=== PATIENT | male | born 1950 | race Caucasian/White ===

== ENCOUNTER 2017-07-19 20:32 | Inpatient (IN) | payer BC, MEDICARE ==
[2017-07-19] MEDS ORDERED: ASPIRIN 81 MG PO STA (21:03)
[2017-07-19] MEDS ORDERED: HEPARIN SODIUM,PORCINE 5,000 UNIT/ML 1 ML VIAL IV STA (21:06)
[2017-07-19 21:08] LABS: CH 31.1; CHCM 32.2; HCT 39.3 % (39.0-53.0); HDW 2.19; HGB 12.8 gm/dL (13.0-17.5); MCH 31.6 pg (25.0-35.0); MCHC 32.6 g/dL (31.0-37.0); MCV 97.1 fL (80.0-100.0); Mean Platelet Volume 7.1; RBC 4.04 m/uL (4.30-5.90); RDW 13.5 % (11.5-15.5)
[2017-07-19] MEDS ORDERED: NALOXONE 0.4 MG/ML 1 ML VIAL IV PRN (21:11)
--- NOTE | 2017-07-19 21:11 | ED ---
General Adult HPI - General Chief complaint: Chest Pain Stated complaint: Chest Pain Time Seen by Provider: 07/19/17 20:56 Source: patient, RN notes reviewed, old records reviewed Mode of arrival: wheelchair Limitations: no limitations - History of Present Illness Initial comments: 66 yo male with history of CAD, tobacco use, diabetes and cardiomyopathy presents with chief complaint of left arm and shoulder pain as well as some mild substernal chest pain. EKG is obtained and is showing ST segment elevation in the precordial leads. Patient denies nausea. Denies shortness of breath. States he had a heart catheterization approximately one week ago at [facility] in [facility]. He does admit to missing 1 dose of Plavix yesterday. He took his dose of medication today. Patient is also wearing a defibrillator, he does state he was told he had an EF of 25%. - Related Data Allergies Allergy/AdvReac Type Severity Reaction Status Date / Time Egg Derived Allergy Unknown Verified 07/19/17 20:51 Review of Systems ROS Statement: Those systems with pertinent positive or pertinent negative responses have been documented in the HPI. ROS Other: All systems not noted in ROS Statement are negative. Past Medical History Past Medical History: COPD, Diabetes Mellitus, Myocardial Infarction ([place]) History of Any Multi-Drug Resistant Organisms: None Reported Past Surgical History: Heart Catheterization With Stent Past Psychological History: No Psychological Hx Reported Smoking Status: Former smoker Past Alcohol Use History: None Reported Past Drug Use History: None Reported General Exam Limitations: no limitations General appearance: alert, in no apparent distress, other (Patient is comfortable, no diaphoresis) Head exam: Present: atraumatic, normocephalic Eye exam: Present: normal appearance, PERRL ENT exam: Present: normal exam Neck exam: Present: normal inspection. Absent: tenderness Respiratory exam: Present: normal lung sounds bilaterally. Absent: respiratory distress Cardiovascular Exam: Present: regular rate, normal rhythm GI/Abdominal exam: Present: soft. Absent: distended, tenderness Extremities exam: Present: normal inspection, normal capillary refill. Absent: pedal edema Neurological exam: Present: oriented X3 Psychiatric exam: Present: normal affect, normal mood Skin exam: Present: warm, dry. Absent: cyanosis, diaphoretic Course Vital Signs 07/19/17 07/19/17 07/19/17 20:47 20:55 21:00 Temperature 98 F Pulse Rate 146 H 76 80 Respiratory 16 18 18 Rate Blood Pressure 126/69 115/63 93/65 O2 Sat by Pulse 97 97 98 Oximetry 07/19/17 07/19/17 07/19/17 21:05 21:10 21:15 Temperature Pulse Rate 80 67 74 Respiratory 18 18 18 Rate Blood Pressure 107/63 101/58 94/71 O2 Sat by Pulse 98 99 98 Oximetry 07/19/17 07/19/17 21:20 21:25 Temperature Pulse Rate 74 78 Respiratory 18 18 Rate Blood Pressure 101/61 123/69 O2 Sat by Pulse 98 98 Oximetry EKG Findings - EKG Comments: EKG Findings:: EKG shows sinus rhythm with ST segment elevation in the precordial leads. No reciprocal change. Medical Decision Making - Medical Decision Making 60 sexual male with left arm pain and minimal chest pain. EKG does show STEMI. There is ST segment elevation in the precordium. No reciprocal changes noted. Patient is given aspirin and heparin. He was taken to the [facility] with [facility]. - Lab Data Result diagrams: 07/19/17 20:50 07/19/17 20:50 Lab Results 07/19/17 07/19/17 07/19/17 Range/Units 20:50 20:50 20:50 WBC 12.0 H (3.8-10.6) k/uL RBC 4.04 L (4.30-5.90) m/uL Hgb 12.8 L (13.0-17.5) gm/dL Hct 39.3 (39.0-53.0) % MCV 97.1 (80.0-100.0) fL MCH 31.6 (25.0-35.0) pg MCHC 32.6 (31.0-37.0) g/dL RDW 13.5 (11.5-15.5) % Plt Count 327 (150-450) k/uL PT (9.0-12.0) sec INR (<1.2) APTT (22.0-30.0) sec Sodium 136 L (137-145) mmol/L Potassium 4.1 (3.5-5.1) mmol/L Chloride 98 (98-107) mmol/L Carbon Dioxide 24 (22-30) mmol/L Anion Gap 14 mmol/L BUN 29 H (9-20) mg/dL Creatinine 1.87 H (0.66-1.25) mg/dL Est GFR (MDRD) Af Amer 44 (>60 ml/min/1.73 sqM) Est GFR (MDRD) Non-Af 36 (>60 ml/min/1.73 sqM) Glucose 98 (74-99) mg/dL Calcium 8.9 (8.4-10.2) mg/dL Total Bilirubin 0.6 (0.2-1.3) mg/dL AST 22 (17-59) U/L ALT 30 (21-72) U/L Alkaline Phosphatase 71 (38-126) U/L Troponin I 2.390 H* (0.000-0.034) ng/mL Total Protein 7.1 (6.3-8.2) g/dL Albumin 3.8 (3.5-5.0) g/dL 07/19/17 Range/Units 20:50 WBC (3.8-10.6) k/uL RBC (4.30-5.90) m/uL Hgb (13.0-17.5) gm/dL Hct (39.0-53.0) % MCV (80.0-100.0) fL MCH (25.0-35.0) pg MCHC (31.0-37.0) g/dL RDW (11.5-15.5) % Plt Count (150-450) k/uL PT 11.8 (9.0-12.0) sec INR 1.2 H (<1.2) APTT 24.0 (22.0-30.0) sec Sodium (137-145) mmol/L Potassium (3.5-5.1) mmol/L Chloride (98-107) mmol/L Carbon Dioxide (22-30) mmol/L Anion Gap mmol/L BUN (9-20) mg/dL Creatinine (0.66-1.25) mg/dL Est GFR (MDRD) Af Amer (>60 ml/min/1.73 sqM) Est GFR (MDRD) Non-Af (>60 ml/min/1.73 sqM) Glucose (74-99) mg/dL Calcium (8.4-10.2) mg/dL Total Bilirubin (0.2-1.3) mg/dL AST (17-59) U/L ALT (21-72) U/L Alkaline Phosphatase (38-126) U/L Troponin I (0.000-0.034) ng/mL Total Protein (6.3-8.2) g/dL Albumin (3.5-5.0) g/dL Critical Care Time Critical Care Time: Yes Total Critical Care Time: 35 Disposition Clinical Impression: ST elevation myocardial infarction (STEMI) Disposition: ADMITTED IP TO THIS [facility] Condition: Serious Referrals: Sammy Cardona MD [Primary Care Provider] - 1-2 days Decision to Admit Reason: Admit from EC Decision Date: 07/19/17 Decision Time: 21:30
[2017-07-19 21:16] LABS: INR 1.2 (<1.2); Prothrombin Time 11.8 sec (9.0-12.0)
[2017-07-19 21:19] LABS: Calcium 8.9 mg/dL (8.4-10.2); Potassium 4.1 mmol/L (3.5-5.1); Total Bilirubin 0.6 mg/dL (0.2-1.3); Total Protein 7.1 g/dL (6.3-8.2)
[2017-07-19] MEDS ORDERED: SODIUM CHLORIDE 0.9% 1,000 ML IV ONE (21:28)
[2017-07-19] MEDS ORDERED: LIDOCAINE 2% INJ 20 MG/ML (20 ML MDV) ONE (21:30)
[2017-07-19] MEDS ORDERED: VERAPAMIL 2.5 MG/ML 2 ML AMP ONE (21:31)
[2017-07-19] MEDS ORDERED: fentaNYL (PF) 50 MCG/ML 2 ML AMP ONE (21:39)
--- NOTE | 2017-07-19 21:43 | XR ---
EXAMINATION TYPE: XR chest 1V portable DATE OF EXAM: 07/19/2017 HISTORY: STEMI. REFERENCE: Previous study dated 01/19/2012. FINDINGS: The lungs are overinflated. The lungs are clear. The heart is not enlarged. IMPRESSION: COPD.
[2017-07-19] MEDS ORDERED: fentaNYL (PF) 50 MCG/ML 2 ML AMP IV ONE (21:44)
[2017-07-19] MEDS ORDERED: LIDOCAINE 2% INJ 20 MG/ML SQ ONE (21:45)
[2017-07-19] MEDS ORDERED: HEPARIN SODIUM 1,000 UN/ML (10ML VL) ONE (21:50)
[2017-07-19] MEDS ORDERED: HEPARIN SODIUM 1,000 UN/ML (10ML VL) IV ONE (21:51)
[2017-07-19] MEDS ORDERED: IOHEXOL 350 MG/ML 125ML BOTTLE INJ ONE (21:55)
[2017-07-19] MEDS ORDERED: RX INFO: IV CONTRAST WAS GIVEN 1 EACH MISC MISCELLANE PRN (22:10)
[2017-07-19] MEDS ORDERED: SODIUM CHLORIDE 0.9% 1,000 ML IV SCH (22:15)
--- NOTE | 2017-07-19 22:32 | CONS ---
CONSULTATION Mr. Good is a 66-year-old male with known history of coronary artery disease, history of peripheral vascular disease, chronic tobacco use, hyperlipidemia, who [place] episode of chest discomfort. Subsequently he was transferred from [place] to [facility]. He underwent coronary and angiography and stenting of his proximal LAD in a setting of an acute myocardial infarction. Apparently he had severe cardiomyopathy and a LifeVest was placed. He was discharged yesterday, and today he had some discomfort in the left arm as well as some discomfort in the neck with a vague feeling in the chest. He came into the emergency room. His EKG shows QS pattern in the anterior leads with persistent ST elevation. Unfortunately I do not have an old EKG for comparison. It is unclear if this is a new ST elevation or the persistent ST elevation from his event. The patient had some dyspnea while in the hospital but not on a regular basis. He is feeling better. He has no peripheral edema. No PND. No orthopnea. No syncope. He underwent stenting in the past by Dr. Norwood in what appears to be the LAD, although I do not have the report. He also underwent revascularization of his left lower extremity. His coronary risk factors are positive for history of smoking, which he stopped recently, history of hyperlipidemia, hypertension. He is nondiabetic. MEDICATIONS: His medications include: 1. Losartan. 2. Aspirin. 3. Plavix. 4. Cilostazol. 5. Lipitor. REVIEW OF SYSTEMS: RESPIRATORY SYSTEM: He has history of chronic obstructive lung disease, history of dyspnea on exertion. GI SYSTEM: No recent GI bleed. No peptic ulcer disease. SYSTEM: No dysuria, hematuria. NERVOUS SYSTEM: No stroke or seizure. PHYSICAL EXAMINATION: A 66-year-old male, alert, oriented, in no apparent distress. Blood pressure 120/70 with a heart rate in the 60s. HEAD: Normocephalic. EYES: Sclerae anicteric. NECK: Good carotid bruit. No bruit. No jugular venous distention. LUNGS: Clear to auscultation. HEART: Regular rate and rhythm. S1, S2. No S3, with systolic murmur at the base. No diastolic murmur or rub. ABDOMEN: Soft, nontender. Positive bowel sounds. No organomegaly. EXTREMITIES: No edema. Intact distal pulses. EKG: EKG reveals sinus mechanism, rate 68, with QS in V1 through V5 with ST-segment elevation from V2 through V5. IMPRESSION: 1. Abnormal EKG in a patient with recent anterior myocardial infarction. The ST elevation could be representing evidence of aneurysmal changes in the apex, although the possibility of stent occlusion cannot be excluded. At the time of my evaluation the patient is pain-free. 2. Ischemic cardiomyopathy, status post recent myocardial infarction. 3. History of peripheral vascular disease. 4. Hypertension. 5. Hyperlipidemia. 6. History of smoking. RECOMMENDATION: I recommend proceeding with coronary angiography to assess his status and guide his treatment. The rational behind the procedure as well as risks and complications were discussed with the patient, who is in full understanding and agreement. Thank you for this consult. Will follow with you. MMMARIBEL / IJN: [id number] /
--- NOTE | 2017-07-19 23:02 | CC ---
CARDIAC CATHETERIZATION REPORT ATTENDING: Dr. Cardona. Mr. Good is a 66-year-old male with known history of coronary artery disease, status post prior percutaneous revascularization of the circumflex and the LAD, who recently was admitted to [facility] in the setting of an acute myocardial infarction complicated by V. fib. arrest. He underwent cardiac catheterization and stenting of the proximal LAD. He had evidence of ischemic cardiomyopathy and had a LifeVest. He was discharged home yesterday and today has some discomfort in the left arm, neck and some vague discomfort in the chest, came into the emergency room and his EKG showed QS pattern in the anterior leads with persistent ST elevation. It was unclear if those are new changes or persistent ST elevation from his recent myocardial infarction. In view of his presentation, his history, recommendation made regarding cardiac catheterization. The procedures risks, benefits and complication were discussed with the patient, who is in full understanding and agreement. PROCEDURE: Patient was brought to clinical laboratory assistant in the semi sedated state after receiving fentanyl and Benadryl and achieving moderate conscious sedated state. Using Xylocaine anesthesia and Seldinger technique, a 6-Lithuanian sheath was introduced in the right radial artery. Selective right and left angiography were performed using 6-Lithuanian 3-1/2 bend FL guiding catheter and a 5-Lithuanian 3-1/2 bend right Abhijeet catheter. Images of the coronary artery, including evan-axial views, were obtained. Following that, a 5-Lithuanian tight pigtail catheter was introduced into the left ventricle and pressures were calculated. Following the, catheter and sheaths were removed. Hemostasis was obtained with deployment of a TR band. There was no immediate complication. Patient is returned to his room in stable condition. FINDINGS: 1. Left main: This is a large-sized vessel, bifurcating into left circumflex, left anterior descending artery. Left main coronary artery has 10% to 20% plaque. 2. Left anterior descending artery: This is a large-sized vessel reaching toward the apex, giving rise to a large diagonal branch in the mid segment. The proximal stented segment of the LAD is patent with no evidence of thrombus. The second stent in the mid area is patent as well. There was diffuse intimal disease. Slow flow in the distal LAD was noted. 3. Left circumflex: This is a nondominant vessel giving rise to a large obtuse marginal branch. The stented segment in the proximal obtuse marginal branch is patent with mild intimal disease in the left circumflex. 4. Right coronary artery: This is a large dominant vessel, bifurcating into PDA and posterior lateral segment and branches. The right coronary artery has mild intimal disease without any evidence of high-grade stenosis. 5. Left ventriculogram: Ventriculogram is not performed. 6. Hemodynamics: The left ventricular end-diastolic pressure was 8 mmHg. IMPRESSION: 1. Patent stent in the proximal left anterior descending. 2. Mild disease in the circumflex and the right coronary artery. RECOMMENDATION: Patient will be continued on maximal medical therapy. 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 The patient will continue present therapy. His renal function will be followed closely and depending on his progress, further recommendation will be made. Those findings and recommendations were discussed with the patient, who is in full understanding and agreement. DURATION OF THE PROCEDURE: 15 minutes. ANTONIO / KEREN: [id number] /
--- NOTE | 2017-07-19 23:05 | CC ---
CARDIAC CATHETERIZATION REPORT Dear Dr. Cardona: I had the pleasure to perform cardiac catheterization on Mr. Good at [facility] on July 19 and a full copy of the procedure note will be forwarded to you. In brief, he was found to have no evidence of thrombosis in the stent that was placed recently at [facility] in [place]. Based on those findings, I have recommended continuing the present medical therapy with close followup of his left ventricular systolic function and if there is no improvement, he will be a candidate to undergo an ICD implantation. I will keep you updated on his progress and thank you for for allowing me to participate in this pleasant patient's care. Please feel free to call for any questions. MMODL / IJN: [id number] /
[2017-07-20] MEDS: METOPROLOL TARTRATE 25 MG TAB PO SCH ×2 (00:50→08:57)
[2017-07-20 03:41] LABS: Calcium 8.5 mg/dL (8.4-10.2); Potassium 4.1 mmol/L (3.5-5.1)
[2017-07-20] MEDS ORDERED: ASPIRIN 81 MG PO SCH (09:00)
[2017-07-20] MEDS ORDERED: CLOPIDOGREL 75 MG TAB PO SCH (09:00)
[2017-07-20] MEDS ORDERED: LOSARTAN 25 MG TAB PO SCH (09:00)
[2017-07-20] MEDS ORDERED: SPIRONOLACTONE 25 MG TAB PO SCH (09:00)
[2017-07-20] MEDS ORDERED: ATORVASTATIN 40 MG TAB PO SCH (09:00)
[2017-07-20] MEDS ORDERED: METOPROLOL TARTRATE 12.5 MG TAB PO SCH (09:02)
--- NOTE | 2017-07-20 09:48 | PN ---
PROGRESS NOTE Mr. Good is a 66-year-old male who presented with symptoms of left arm discomfort. He was recently discharged from [facility] in [place] after an acute anterior myocardial infarction with severe ischemic cardiomyopathy. His EKG showed QS pattern in the anterior wall with a persistent ST elevation. Because of his symptoms and recent event, he underwent repeat cardiac catheterization that revealed patent stents. He is doing well this morning. His breathing has been stable. He denies dizziness, palpitation. He denies any nausea. He continued on aspirin once a day, Plavix 75 mg daily, losartan 25 mg daily, spironolactone 12.5 mg daily, and metoprolol tartrate 25 mg twice a day. PHYSICAL EXAMINATION: Blood pressure running in the 90s with the heart rate in the 60s. LUNGS: Clear. HEART: Regular rate and rhythm. S1, S2. No S3. No rub. ABDOMEN: Soft, nontender. EXTREMITIES: No edema. Right radial pulse is intact. LAB DATA: Lab data revealed BUN and creatinine of 28 and 1.6, improved compared with yesterday. Potassium 4.1, hemoglobin 12.8. His troponin 2.3 and 2.04. EKG revealed no changes. IMPRESSION: 1. History of coronary disease with recent anterior myocardial infarction with patent stent. 2. Severe ischemic cardiomyopathy. 3. History of chronic tobacco use. 4. Peripheral vascular disease. 5. Chronic kidney disease. RECOMMENDATION: From the cardiac standpoint, I will cut down the dose of the metoprolol tartrate 12.5 mg twice a day because of his blood pressure and heart rate. He will follow up on a regular basis with Dr. Norwood. He should be able to be discharged home today and continue on the Life Vest. MMODL / IJN: [id number] /
[2017-07-20 09:51] VITALS: RESP 18
[2017-07-20 10:26] VITALS: BMI 17.0
[2017-07-20] MEDS ORDERED: CARVEDILOL 3.125 MG TAB PO SCH (12:00)
[2017-07-20 12:15] VITALS: TEMP 97.5
[2017-07-20 12:47] VITALS: BP 97/58; PULSE 53
--- NOTE | 2017-07-20 15:00 | P.HPIM ---
History of Present Illness H&P Date: 07/20/17 Chief Complaint: Chest pain HISTORY AND PHYSICAL AND DISCHARGE SUMMARY: This is a 66-year-old male patient of Dr. Cardona with a past medical history of COPD, diabetes mellitus type 2, recent acute ST elevated myocardial infarction treated at [facility] and underwent stenting in the proximal LAD. He has a known ejection fraction of 25% and was discharged home on a LifeVest yesterday. Patient states that once he got home he was feeling paranoid and developed this pain in his left arm and chest had a little tightness. He came into the emergency center at [facility] and he states that once a LifeVest was taken off the pain went away. Patient was seen by cardiology as he had ST changes on his EKG. It was not clear if this was new or old ST elevation. Patient underwent heart catheterization that showed patent stent in the proximal LAD and mild disease in the circumflex and right coronary artery. Chest x-ray showed COPD. Patient was ordered to receive metipranolol but this was never given by the nurses due to hypotension and bradycardia. Patient states that when he was at [place], he was taken off of beta roz because his heart rate was too low. We will change the metoprolol to Coreg and patient will receive a dose before he leaves. Patient has been cleared by cardiology for discharge home today. Patient is to maintain LifeVest. Review of Systems All systems: negative Constitutional: Denies chills, Denies fever Eyes: denies blurred vision, denies pain Ears, nose, mouth and throat: Denies headache, Denies sore throat Cardiovascular: Reports chest pain, Denies shortness of breath Respiratory: Denies cough Gastrointestinal: Denies abdominal pain, Denies diarrhea, Denies nausea, Denies vomiting Musculoskeletal: Denies myalgias Integumentary: Denies pruritus, Denies rash Neurological: Denies numbness, Denies weakness Psychiatric: Denies anxiety, Denies depression Endocrine: Denies fatigue, Denies weight change Past Medical History Past Medical History: COPD, Diabetes Mellitus, Myocardial Infarction ([place]) Additional Past Medical History / Comment(s): pt stated EF of 25% new life vest. Last Myocardial Infarction Date:: 07/13/2017 History of Any Multi-Drug Resistant Organisms: None Reported Past Surgical History: Heart Catheterization With Stent Additional Past Surgical History / Comment(s): 1 stent placed approx [address] Norwood, 2 stents placed Jul 13 at [facility] ( D/C on 07-18) Past Anesthesia/Blood Transfusion Reactions: No Reported Reaction Date of Last Stent Placement:: 07-13-2017 Past Psychological History: No Psychological Hx Reported Smoking Status: Former smoker Past Alcohol Use History: None Reported Additional Past Alcohol Use History / Comment(s): Patient was a smoker one and a half packs per day but recently cut back and is still exposed to secondhand smoke. He denies any medical marijuana, marijuana, street drug or alcohol use. He lives at home with his . 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 He does not use any devices for ambulation. Past Drug Use History: None Reported - Past Family History Mother Family Medical History: No Reported History Additional Family Medical History / Comment(s): Mother is alive at age 92 with history of dementia. Father Family Medical History: CVA/TIA, Dementia, Diabetes Mellitus Additional Family Medical History / Comment(s): Father at age 93 from old age with history of TIAs and diabetes mellitus. Sister(s) Additional Family Medical History / Comment(s): Patient has 3 sisters and one has been diagnosed with breast cancer. Patient does not have any brothers. Patient does not have any children. Medications and Allergies Home Medications Medication Instructions Recorded Confirmed Type Aspirin [Adult Low Dose Aspirin EC] 81 mg PO DAILY 07/19/17 07/19/17 History Atorvastatin [Lipitor] 40 mg PO HS 07/19/17 07/19/17 History Cilostazol [Pletal] 50 mg PO BID 07/19/17 07/19/17 History Clopidogrel [Plavix] 75 mg PO DAILY 07/19/17 07/19/17 History Losartan Potassium [Cozaar] 25 mg PO DAILY 07/19/17 07/19/17 History Nitroglycerin Sl Tabs [Nitrostat] 0.4 mg SUBLINGUAL Q5M PRN 07/19/17 07/19/17 History Spironolactone [Aldactone] 25 mg PO DAILY 07/19/17 07/19/17 History Carvedilol [Coreg] 3.125 mg PO BID #60 tablet 07/20/17 Rx Allergies Allergy/AdvReac Type Severity Reaction Status Date / Time Egg Derived Allergy Unknown Verified 07/19/17 23:04 Poultry Allergy Unknown Verified 07/20/17 00:46 Physical Exam Vitals: Vital Signs Temp Pulse Pulse Pulse Resp BP BP 07/20/17 12:46 53 L 97/58 07/20/17 11:35 97.5 F L 57 L 18 94/54 07/20/17 07:50 97.1 F L 63 18 89/50 07/20/17 04:00 58 L 63 16 90/60 07/20/17 01:55 68 16 89/53 07/20/17 00:55 60 17 93/50 07/20/17 00:00 56 L 54 L 17 07/19/17 23:55 56 L 85/47 07/19/17 22:55 54 L 18 78/48 07/19/17 22:40 56 L 17 87/51 07/19/17 22:25 57 L 16 101/59 07/19/17 22:10 64 17 89/52 07/19/17 21:40 64 17 89/52 07/19/17 21:25 78 18 123/69 07/19/17 21:20 74 18 101/61 07/19/17 21:15 74 18 94/71 07/19/17 21:10 67 18 101/58 07/19/17 21:05 80 18 107/63 07/19/17 21:00 80 18 93/65 07/19/17 20:55 76 18 115/63 07/19/17 20:47 98 F 146 H 16 126/69 Pulse Ox 07/20/17 12:46 07/20/17 11:35 96 07/20/17 07:50 96 07/20/17 04:00 96 07/20/17 01:55 97 07/20/17 00:55 96 07/20/17 00:00 07/19/17 23:55 07/19/17 22:55 96 07/19/17 22:40 95 07/19/17 22:25 98 07/19/17 22:10 98 07/19/17 21:40 98 07/19/17 21:25 98 07/19/17 21:20 98 07/19/17 21:15 98 07/19/17 21:10 99 07/19/17 21:05 98 07/19/17 21:00 98 07/19/17 20:55 97 07/19/17 20:47 97 Intake and Output 07/19/17 07/20/17 07/20/17 22:59 06:59 14:59 Intake Total 150 100 180 Output Total 200 Balance 150 100 -20 Intake: IV 150 Intake, IV Titration 100 Amount Sodium Chloride 0.9% 1, 100 000 ml @ 75 mls/hr IV . [id number] [facility] Rx#:[id number] Oral 180 Output: Urine 200 Other: Voiding Method Toilet Weight 58.967 kg 57.1 kg 57.1 kg Patient Weight 07/21/17 06:59 Weight 57.1 kg Gen: This is a 66-year-old thin male. He is sitting up in bed and appears to be in no acute distress. Patient is very anxious to be discharged home. HEENT: Head is atraumatic, normocephalic. Pupils equal, round. Sclerae is anicteric. NECK: Supple. No JVD. No lymphadenopathy. No thyromegaly. LUNGS: Clear to auscultation. No wheezes or rhonchi. No intercostal retractions. HEART: Regular rate and rhythm. No murmur. ABDOMEN: Soft. Bowel sounds are present. No masses. No tenderness. EXTREMITIES: No pedal edema. No calf tenderness. NEUROLOGICAL: Patient is awake, alert and oriented x3. Cranial nerves 2 through 12 are grossly intact. Results CBC & Chem 7: 07/19/17 20:50 07/20/17 03:09 Labs: Abnormal Lab Results - Last 24 Hours (Table) 07/19/17 07/19/17 07/19/17 Range/Units 20:50 20:50 20:50 WBC 12.0 H (3.8-10.6) k/uL RBC 4.04 L (4.30-5.90) m/uL Hgb 12.8 L (13.0-17.5) gm/dL INR (<1.2) Sodium 136 L (137-145) mmol/L BUN 29 H (9-20) mg/dL Creatinine 1.87 H (0.66-1.25) mg/dL Troponin I 2.390 H* (0.000-0.034) ng/mL 10/02/2807/20/17 07/20/17 Range/Units 20:50 03:09 03:09 WBC (3.8-10.6) k/uL RBC (4.30-5.90) m/uL Hgb (13.0-17.5) gm/dL INR 1.2 H (<1.2) Sodium 133 L (137-145) mmol/L BUN 28 H (9-20) mg/dL Creatinine 1.60 H (0.66-1.25) mg/dL Troponin I 2.040 H* (0.000-0.034) ng/mL Thrombosis Risk Factor Assmnt - Choose All That Apply Any of the Below Risk Factors Present?: Yes Each Factor Represents 1 point: Abnormal pulmonary function (COPD) Other Risk Factors: Yes Each Risk Factor Represents 2 Points: Arthroscopic surgery Thrombosis Risk Factor Assessment Total Risk Factor Score: 3 Thrombosis Risk Factor Assessment Level: Moderate Risk Assessment and Plan Plan: 1. Recent anterior myocardial infarction status post stent placement, stable. 2. Chest pain possibly related to gastritis or from life vest. 3. Ischemic cardiomyopathy. Patient to continue LifeVest. 4. COPD, stable without exacerbation. 5. Diabetes mellitus type 2. Patient will be admitted to the hospital for a minimum of 2 night stay. Discharge plan: Return home Impression and plan of care have been directed as dictated by the signing physician. Michelle Adams nurse practitioner acting as scribe for signing physician.
== END 2017-07-20 13:29 | disposition home or self-care (01) | DRG 391 ==
LOC: EC 20:32 → 6ICU 21:11 → 6SEL 22:07
PROVIDERS: ADMIT Internal Medicine Geriatric Medicine; ATTEND Internal Medicine Geriatric Medicine
PROC: B2111ZZ Fluoroscopy of Multiple Coronary Arteries using Low Osmolar Contrast (ICD-10-PCS; 2017-07-19)
PROC: 4A023N7 Measurement of Cardiac Sampling and Pressure, Left Heart, Percutaneous Approach (ICD-10-PCS; principal; 2017-07-19 21:22)
DX: K29.70 Gastritis, unspecified, without bleeding (principal); I21.02 ST elevation (STEMI) myocardial infarction involving left anterior descending coronary artery; T82.847A Pain due to cardiac prosthetic devices, implants and grafts, initial encounter; E11.22 Type 2 diabetes mellitus with diabetic chronic kidney disease; E11.51 Type 2 diabetes mellitus with diabetic peripheral angiopathy without gangrene; J44.9 Chronic obstructive pulmonary disease, unspecified; R07.9 Chest pain, unspecified; E78.5 Hyperlipidemia, unspecified; I12.9 Hypertensive chronic kidney disease with stage 1 through stage 4 chronic kidney disease, or unspecified chronic kidney disease; I25.10 Atherosclerotic heart disease of native coronary artery without angina pectoris; I25.5 Ischemic cardiomyopathy; N18.9 Chronic kidney disease, unspecified; Z77.22 Contact with and (suspected) exposure to environmental tobacco smoke (acute) (chronic); Z79.02 Long term (current) use of antithrombotics/antiplatelets; Z79.82 Long term (current) use of aspirin; Z79.899 Other long term (current) drug therapy; Z87.891 Personal history of nicotine dependence; Z95.5 Presence of coronary angioplasty implant and graft; Y71.1 Therapeutic (nonsurgical) and rehabilitative cardiovascular devices associated with adverse incidents; Y92.9 Unspecified place or not applicable
CPT/HCPCS: 36415; 71010; 80048; 80053; 83735; 84484; 85027; 85610; 85730; 93005; 93458; 96374; 96375; 99291

== ENCOUNTER → 2017-12-03 | Outpatient (CLI) | payer BC ==
[2017-12-03 13:59] LABS: HGB 12.1 gm/dL (13.0-17.5); MCH 30.4 pg (25.0-35.0); MCHC 32.7 g/dL (31.0-37.0); MCV 93.1 fL (80.0-100.0); Mean Platelet Volume 6.6; Platelet Count 273 k/uL (150-450); RBC 3.97 m/uL (4.30-5.90); RDW 13.4 % (11.5-15.5); WBC 8.7 k/uL (3.8-10.6)
[2017-12-03 14:13] LABS: Potassium 4.5 mmol/L (3.5-5.1)
== END | disposition home or self-care (01) ==
LOC: LABWHC1 13:12
PROVIDERS: ATTEND Internal Medicine Cardiovascular Disease
DX: Z01.812 Encounter for preprocedural laboratory examination (principal); I25.5 Ischemic cardiomyopathy
CPT/HCPCS: 36415; 80051; 82565; 84520; 85027

== ENCOUNTER 2017-12-13 06:15 | Day surgery (SDC) | payer BC, MEDICARE ==
[2017-12-11 15:55] VITALS: BMI 19.0
[~2017-12-13 06:15] MED LIST: ceFAZolin 1,000 MG in SODIUM CHLORIDE 0.9% IRRIGATIO 250 ML IRRIGATION ONE; ceFAZolin IN SWFI 2 GM/20 ML SYRINGE IVP ONE
[2017-12-13] MEDS ORDERED: fentaNYL (PF) 50 MCG/ML 2 ML AMP ONE (07:23)
[2017-12-13] MEDS ORDERED: diphenhydrAMINE 50 MG/ML 1 ML VIAL ONE (07:23)
[2017-12-13] MEDS ORDERED: PROPOFOL 10 MG/ML 20 ML VIAL IV ONE (07:23)
[2017-12-13] MEDS ORDERED: MIDAZOLAM 2 MG/2 ML VIAL ONE (07:23)
[2017-12-13] MEDS ORDERED: IOHEXOL 300 MG/ML 50 ML BOTTLE IV ONE (08:08)
[2017-12-13] MEDS ORDERED: LIDOCAINE 1% INJ 10MG/ML (20 ML MDV) SQ ONE (08:12)
[2017-12-13] MEDS ORDERED: ACETAMINOPHEN TAB 325 MG TAB PO PRN (08:53)
--- NOTE | 2017-12-13 09:05 | P.PCN ---
Date of Procedure: 12/13/17 Preoperative Diagnosis: Ischemic cardiomyopathy, CHF Postoperative Diagnosis: The same Procedure(s) Performed: Prophylactic AICD implantation for primary prevention Description of Procedure: HISTORY: This is a 67-year-old gentleman with history of anterior wall microinfarction, ischemic cardiomyopathy with ejection fraction of 30-30% and chronic CHF. Patient is advised to have AICD implantation for primary prevention. Patient was referred by Dr. Hugo CONSENT:I have discussed the risks, benefits and alternative therapies for the above-mentioned procedure and for both sedation/analgesia as well as necessary blood product administration, if indicated, as they pertain to this patient. The patient has indicated understanding and acceptance of the risks and procedures discussed. PROCEDURE: Patient was brought to the lab in a fasting state. Patient was prepped and draped in the usual fashion. Patient was given IV sedation by the department of anesthesia. The skin below the left clavicle was infiltrated with lidocaine. An incision was made parallel to deltopectoral groove was deepened until the pectoral fascia was exposed. A pocket was created by blunt dissection and cautery. Axillary venography was performed to delineate the course of the axillary vein. 1 venous stick were performed into extrathoracic portion of the axillary vein and a single sheath were advanced over the guidewires and left in subclavian vein. LEADS: VENTRICULAR: This is manufactured by [employer]. Model number is [id number] AND THE SERIAL NUMBER IS [id number]. The ventricular lead is maneuvered l with help of a straight and curved stylets into the left ventricle apical region. Satisfactory position was obtained and threshold measurements were made. And thresholds were obtained. THRESHOLDS: VENTRICLE: The minimal patient threshold is 0.8 at pulse width of 0.5. The impedance is 711 ohms . R-wave: 10.4 new The leads and pulse generator remained in the pocket after it was washed with antibiotics. Pocket was closed in the usual fashion. The fascia was closed with 2-0 Prolene ,the subcutaneous tissue was closed with 3-0 Prolene and the skin was closed with 4-0 Prolene. PROGRAMMING: Bradycardia programming: MODE: VVI RATE: 40 OUTPUT: Ventricle: 3.5 TACHYCARDIA PROGRAMMING: VF ZONE: PROGRAMMED TO A RATE OF 200. THE THERAPIES ARE PROGRAMMED TO 321 FOLLOWED BY 355. VT ZONE: PROGRAMMED TO A RATE OF ABOUT 167. THE THERAPIES ARE PROGRAMMED TO 20 J SHOCK FOLLOWED BY 353. FINAL IMPRESSION: . Successful implantation of prophylactic AICD. Axillary venography. DFT testing COMPLICATIONS: None. PLAN: Patient will be monitored on the telemetry unit. Prophylactic antibiotics will be continued. Chest x-ray in the morning. Possible discharge in am.
[2017-12-13] MEDS ORDERED: SODIUM CHLORIDE 0.9% 500 ML IV ONE (10:00)
[2017-12-13] MEDS ORDERED: NITROGLYCERIN SL TABS 0.4 MG TAB SUBLINGUAL PRN (14:18)
[2017-12-13] MEDS: LACTATED RINGERS 1,000 ML IV SCH (14:24)
[2017-12-13] MEDS: SODIUM CHLORIDE 0.9% 1,000 ML IV SCH ×2 (14:25)
[2017-12-13] MEDS: DICLOFENAC 0.1% OPHTH SOLN 2.5 ML BTL LEFT EYE SCH ×2 (15:57→20:00)
[2017-12-13] MEDS: LOSARTAN 25 MG TAB PO SCH (15:57)
[2017-12-13] MEDS: ceFAZolin IN SWFI 2 GM/20 ML SYRINGE IVP SCH ×2 (15:57→19:59)
[2017-12-13] MEDS: CARVEDILOL 3.125 MG TAB PO SCH (15:57)
[2017-12-13] MEDS: GABAPENTIN 100 MG CAP PO SCH ×2 (15:57→19:59)
[2017-12-13] MEDS: SPIRONOLACTONE 25 MG TAB PO SCH (15:57)
[2017-12-13] MEDS: HYDROcodone/APAP 5-325MG 1 EACH TAB PO PRN (19:59)
[2017-12-13] MEDS ORDERED: ATORVASTATIN 40 MG TAB PO SCH (21:00)
[2017-12-14] MEDS: ceFAZolin IN SWFI 2 GM/20 ML SYRINGE IVP SCH ×2 (02:00→07:57)
[2017-12-14] MEDS: SODIUM CHLORIDE 0.9% 1,000 ML IV SCH ×2 (02:01)
[2017-12-14] MEDS: LACTATED RINGERS 1,000 ML IV SCH (05:47)
[2017-12-14 07:48] VITALS: PULSE 55; RESP 18; TEMP 97.8
[2017-12-14] MEDS: GABAPENTIN 100 MG CAP PO SCH (07:56)
[2017-12-14] MEDS: LOSARTAN 25 MG TAB PO SCH (07:56)
[2017-12-14] MEDS: CARVEDILOL 3.125 MG TAB PO SCH (07:56)
[2017-12-14] MEDS: SPIRONOLACTONE 25 MG TAB PO SCH (07:57)
[2017-12-14 08:00] VITALS: BP 109/59
[2017-12-14] MEDS: HYDROcodone/APAP 5-325MG 1 EACH TAB PO PRN (08:08)
--- NOTE | 2017-12-14 08:41 | XR ---
EXAMINATION TYPE: XR chest 2V DATE OF EXAM: 12/14/2017 COMPARISON: 07/19/2017 TECHNIQUE: PA and lateral views submitted. HISTORY: Lead placement check FINDINGS: Left-sided single lead pacemaker seen with tip overlying the region of the right ventricle. No sizabl e pneumothorax. Linear subsegmental changes in the left upper lobe scar or atelectasis. No overt fail ure or pleural effusion. Underlying COPD suggested. Minimal blunting of both costophrenic angles may represent tiny effusions. IMPRESSION: 1. Cardiac lead overlies the region of the right ventricle with no sizable pneumothorax 2. Tiny bilateral pleural effusion or thickening with left upper lobe linear atelectasis or scar.
--- NOTE | 2017-12-14 08:57 | P.DS ---
Providers Date of admission: 12/13/2017 Expected date of discharge: 12/14/17 Attending physician: Quynh Grissom Primary care physician: Sammy Cardona - Discharge Diagnosis(es) (1) Ischemic cardiomyopathy Current Visit: Yes Status: Acute (2) Chronic CHF Current Visit: Yes Status: Acute (3) History of myocardial infarction Current Visit: Yes Status: Acute (4) S/P implantation of automatic cardioverter/defibrillator (AICD) Current Visit: Yes Status: Acute Hospital Course: This a 67-year-old gentleman suffered a large anterior wall myocardial infarction. Patient developed a severe cardiomyopathy with ejection fraction 30 -35% and has chronic CHF class 1-2. Patient was referred by Dr. Hugo for AICD implantation. Patient had single-chamber single coil AICD implantation yesterday. Patient tolerated the procedure well. Clinically stable since the procedure. Complaints of moderate amount of pain around the incision site. There is no hematoma. Mild ecchymosis noted. Chest x-ray shows proper lead position. No evident complications. Patient tolerated activity fairly well. Patient is waiting to complete his antibiotics and also waiting to be interrogated by [employer]. Once the evaluation by [employer] rep is done and if settings are stable, patient will be discharged home after completion of the antibiotics. Follow-up in the office in about one week time. Patient is advised to keep the area dry until seen in the office. Patient is given usual instructions. He is advised to not to raise the arm and both shoulder level and also not to lift, push or pull with the left arm. He will continue home medications including Plavix and aspirin. He is given a prescription prophylactic antibiotic and also pain medication. He is instructed to call us if he develops any fever, chills or significant swelling around the puncture site. Plan - Discharge Summary Discharge Rx Participant: No New Discharge Prescriptions: New HYDROcodone/APAP 5-325MG [[place] 5-325] 1 - 2 tab PO Q6HR PRN #10 tab PRN Reason: chest pain Cephalexin [Keflex] 500 mg PO Q8HR #10 cap No Action Nitroglycerin Sl Tabs [Nitrostat] 0.4 mg SUBLINGUAL Q5M PRN PRN Reason: Chest Pain Losartan Potassium [Cozaar] 25 mg PO DAILY Clopidogrel [Plavix] 75 mg PO DAILY Cilostazol [Pletal] 50 mg PO BID Atorvastatin [Lipitor] 40 mg PO HS Aspirin [Adult Low Dose Aspirin EC] 81 mg PO DAILY Spironolactone [Aldactone] 25 mg PO DAILY Carvedilol [Coreg] 3.125 mg PO BID #60 tablet Diclofenac 0.1% Ophth Soln [Voltaren 0.1% Ophth Soln] 1 drops LEFT EYE BID Gabapentin [Neurontin] 100 mg PO BID Discharge Medication List Aspirin [Adult Low Dose Aspirin EC] 81 mg PO DAILY 07/19/17 [History] Atorvastatin [Lipitor] 40 mg PO HS 07/19/17 [History] Cilostazol [Pletal] 50 mg PO BID 07/19/17 [History] Clopidogrel [Plavix] 75 mg PO DAILY 07/19/17 [History] Losartan Potassium [Cozaar] 25 mg PO DAILY 07/19/17 [History] Nitroglycerin Sl Tabs [Nitrostat] 0.4 mg SUBLINGUAL Q5M PRN 07/19/17 [History] Spironolactone [Aldactone] 25 mg PO DAILY 07/19/17 [History] Carvedilol [Coreg] 3.125 mg PO BID #60 tablet 07/20/17 [Rx] Diclofenac 0.1% Ophth Soln [Voltaren 0.1% Ophth Soln] 1 drops LEFT EYE BID 12/11 [History] Gabapentin [Neurontin] 100 mg PO BID 12/11/17 [History] Cephalexin [Keflex] 500 mg PO Q8HR #10 cap 12/14/17 [Rx] HYDROcodone/APAP 5-325MG [[place] 5-325] 1 - 2 tab PO Q6HR PRN #10 tab 12/14/17 [ Rx]
== END 2017-12-14 11:54 | disposition home or self-care (01) ==
LOC: CATHEP 06:15 → 3OBS 08:50 → CATHEP 12-14 11:54
PROVIDERS: ATTEND Internal Medicine Cardiovascular Disease
DX: I25.5 Ischemic cardiomyopathy (principal); Z00.6 Encounter for examination for normal comparison and control in clinical research program; I11.0 Hypertensive heart disease with heart failure; I50.9 Heart failure, unspecified; Z86.74 Personal history of sudden cardiac arrest; J90 Pleural effusion, not elsewhere classified; J98.11 Atelectasis; E78.5 Hyperlipidemia, unspecified; I25.10 Atherosclerotic heart disease of native coronary artery without angina pectoris; I25.2 Old myocardial infarction; I25.3 Aneurysm of heart; Z95.5 Presence of coronary angioplasty implant and graft; I73.9 Peripheral vascular disease, unspecified; Z88.6 Allergy status to analgesic agent; Z87.891 Personal history of nicotine dependence; Z79.01 Long term (current) use of anticoagulants; Z79.82 Long term (current) use of aspirin; Z79.899 Other long term (current) drug therapy
CPT/HCPCS: 93641; 33249; 71046; C1895; C1722; J2250; J1200; J2001; J3010; J2704; Q9967; J0690 ×2

== ENCOUNTER 2018-08-08 13:31 | Emergency (ER) | payer BC ==
--- NOTE | 2018-08-08 13:55 | ED ---
Chest Pain HPI - General Chief Complaint: Chest Pain Stated Complaint: chest pain Time Seen by Provider: 08/08/18 13:46 Source: patient, RN notes reviewed, old records reviewed Mode of arrival: wheelchair Limitations: no limitations - History of Present Illness Initial Comments: This is a 67-year-old male the ER for evaluation chest pain history of CAD he did take nitro with no help prior to arrival. Patient states upon arrival to ER complains of no chest pain shortness of breath no dizziness, no complaints. MD Complaint: chest pain -: days(s) (1.5) Onset: during rest, during exertion Pain Location: substernal, left chest Pain Radiation: none Severity: mild Severity scale (1-10): 3 Quality: tightness Improves With: nitroglycerin Worsens With: nothing Treatments Prior to Arrival: none - Related Data Home Medications Medication Instructions Recorded Confirmed Aspirin [Adult Low Dose Aspirin EC] 81 mg PO DAILY@1200 07/19/17 08/08/18 Atorvastatin [Lipitor] 40 mg PO HS@0000 07/19/17 08/08/18 Cilostazol [Pletal] 50 mg PO BID@0000,1200 07/19/17 08/08/18 Clopidogrel [Plavix] 75 mg PO DAILY@1200 07/19/17 08/08/18 Losartan Potassium [Cozaar] 25 mg PO DAILY@1200 07/19/17 08/08/18 Nitroglycerin Sl Tabs [Nitrostat] 0.4 mg SUBLINGUAL Q5M PRN 07/19/17 08/08/18 Spironolactone [Aldactone] 25 mg PO DAILY@1200 07/19/17 08/08/18 Carvedilol [Coreg] 3.125 mg PO BID@0000,1200 08/08/18 08/08/18 Allergies Allergy/AdvReac Type Severity Reaction Status Date / Time Egg Derived Allergy Abdominal Verified 08/08/18 14:17 Pain Poultry Allergy Abdominal Verified 08/08/18 14:17 Pain NSAIDS (Non-Steroidal AdvReac KIDNEY Verified 08/08/18 14:17 Anti-Inflamma ISSUES Review of Systems ROS Statement: Those systems with pertinent positive or pertinent negative responses have been documented in the HPI. ROS Other: All systems not noted in ROS Statement are negative. EKG Findings - EKG Comments: EKG Findings:: EKG shows sinus rhythm rate of 60, NC 170, QRS 96, QTc 436 Past Medical History Past Medical History: COPD, Diabetes Mellitus, Myocardial Infarction ([place]) Additional Past Medical History / Comment(s): pt stated EF of 25% new life vest. Last Myocardial Infarction Date:: 07/13/2017 History of Any Multi-Drug Resistant Organisms: None Reported Past Surgical History: Heart Catheterization With Stent Additional Past Surgical History / Comment(s): 1 stent placed approx [address] Norwood, 2 stents placed Jul 13 at [facility] ( D/C on 07-18) Past Anesthesia/Blood Transfusion Reactions: No Reported Reaction Date of Last Stent Placement:: 07-13-2017 Past Psychological History: No Psychological Hx Reported Smoking Status: Former smoker - Past Family History Mother Family Medical History: No Reported History Additional Family Medical History / Comment(s): Mother is alive at age 92 with history of dementia. Father Family Medical History: Cancer Additional Family Medical History / Comment(s): SKIN CANCER Sister(s) Family Medical History: Cancer Additional Family Medical History / Comment(s): BREAST CANCER General Exam Limitations: no limitations General appearance: alert, in no apparent distress Head exam: Present: atraumatic, normocephalic, normal inspection Eye exam: Present: normal appearance, PERRL, EOMI. Absent: scleral icterus, conjunctival injection, periorbital swelling ENT exam: Present: normal exam, mucous membranes moist Neck exam: Present: normal inspection. Absent: tenderness, meningismus, lymphadenopathy Respiratory exam: Present: normal lung sounds bilaterally. Absent: respiratory distress, wheezes, rales, rhonchi, stridor Cardiovascular Exam: Present: regular rate, normal rhythm, normal heart sounds. Absent: systolic murmur, diastolic murmur, rubs, gallop, clicks GI/Abdominal exam: Present: soft, normal bowel sounds. Absent: distended, tenderness, guarding, rebound, rigid Extremities exam: Present: normal inspection, full ROM, normal capillary refill. Absent: tenderness, pedal edema, joint swelling, calf tenderness Back exam: Present: normal inspection Neurological exam: Present: alert, oriented X3, CN II-XII intact Psychiatric exam: Present: normal affect, normal mood Skin exam: Present: warm, dry, intact, normal color. Absent: rash Course Vital Signs 08/08/18 08/08/18 08/08/18 13:35 14:00 15:00 Temperature 97.1 F L Pulse Rate 60 58 L 48 L Respiratory 18 14 13 Rate Blood Pressure 131/76 131/76 109/69 O2 Sat by Pulse 98 96 Oximetry 08/08/18 16:00 Temperature Pulse Rate 46 L Respiratory 12 Rate Blood Pressure 118/74 O2 Sat by Pulse 100 Oximetry - Reevaluation(s) Reevaluation #1: 08/08/18 16:29 Medical record is reviewed Reevaluation #2: 08/08/18 16:29 A she has elevated troponin stable mildly bumped, patient's prior troponin is 2.0, today he is undetectable, 0.017 Reevaluation #3: 08/08/18 16:30 Patient refusing to stay for admission, patient states he has no chest pain has not throughout stay and would like to be discharged home Reevaluation #4: 08/08/18 16:30 Studies Chest x-rays negative for acute disease Chest Pain MDM - MDM 67 male the ER for evaluation chest pain, history of chest pain history of chest pain causing angina taking nitro. Patient states he has no pain currently , and is now essay for further evaluation will be discharged home Disposition Clinical Impression: Chest pain Disposition: HOME SELF-CARE Condition: Good Instructions: Chest Pain (ED) Is patient prescribed a controlled substance at d/c from ED?: No Referrals: Sammy Cardona MD [Primary Care Provider] - 1-2 days
--- NOTE | 2018-08-08 15:06 | XR ---
EXAMINATION TYPE: XR chest 2V DATE OF EXAM: 08/08/2018 COMPARISON: Prior chest x-ray 12/14/2017 HISTORY: Chest pain TECHNIQUE: Frontal and lateral views of the chest are obtained. FINDINGS: Generator is present in the left pectoral region, intracardiac defibrillator lead in the ri ght ventricle. No evident pneumothorax or pleural effusion. The heart is small. Prominent lung volume s are consistent with COPD. Pulmonary vascularity and airam are not significantly changed. There is so me improvement in aeration in the left lower hemithorax. There are coronary artery calcifications and likely stents. Bones are stable. IMPRESSION: No acute cardiopulmonary process. There is improvement in aeration.
[2018-08-08 15:26] LABS: Basophils # (A) 0.1 k/uL (0-0.2); Basophils % (A) 1 %; Eosinophils # (A) 0.2 k/uL (0-0.7); Eosinophils % (A) 3 %; HGB 13.1 gm/dL (13.0-17.5); Lymphocytes # (A) 1.5 k/uL (1.0-4.8); Lymphocytes % (A) 18 %; MCH 30.4 pg (25.0-35.0); MCHC 32.8 g/dL (31.0-37.0); MCV 92.9 fL (80.0-100.0); Mean Platelet Volume 7.3; Monocytes # (A) 0.6 k/uL (0-1.0); Monocytes % (A) 7 %; Neutrophils # (A) 5.9 k/uL (1.3-7.7); Neutrophils % (A) 70 %; Platelet Count 179 k/uL (150-450); RBC 4.31 m/uL (4.30-5.90); RDW 13.3 % (11.5-15.5); WBC 8.5 k/uL (3.8-10.6)
[2018-08-08 15:38] LABS: INR 1.1 (<1.2); Partial Thromboplastin Time 25.1 sec (22.0-30.0); Prothrombin Time 10.9 sec (9.0-12.0)
[2018-08-08 15:47] LABS: Albumin 4.2 g/dL (3.5-5.0); Calcium 9.1 mg/dL (8.4-10.2); Magnesium 1.9 mg/dL (1.6-2.3); Potassium 4.6 mmol/L (3.5-5.1); Total Bilirubin 0.4 mg/dL (0.2-1.3); Total Protein 7.2 g/dL (6.3-8.2)
[2018-08-08 16:16] LABS: Creatine Kinase MB 2.9 ng/mL (0.0-2.4); Troponin I 0.016 ng/mL (0.000-0.034)
[2018-08-08 16:41] VITALS: BP 111/66; PULSE 49; RESP 18; TEMP 97.4
== END 2018-08-08 16:41 | disposition home or self-care (01) ==
LOC: EC 13:31
DX: R07.89 Other chest pain (principal); I25.10 Atherosclerotic heart disease of native coronary artery without angina pectoris; I25.2 Old myocardial infarction; Z87.891 Personal history of nicotine dependence; Z88.6 Allergy status to analgesic agent; Z91.012 Allergy to eggs; Z91.018 Allergy to other foods; Z79.02 Long term (current) use of antithrombotics/antiplatelets; Z79.82 Long term (current) use of aspirin; Z79.899 Other long term (current) drug therapy; Z95.9 Presence of cardiac and vascular implant and graft, unspecified
CPT/HCPCS: 36415; 71046; 80053; 82550; 82553; 83690; 83735; 83880; 84484; 85025; 85610; 85730; 99285

== ENCOUNTER → 2019-06-02 | Outpatient (CLI) | payer BC ==
--- NOTE | 2019-06-02 17:49 | US ---
EXAMINATION TYPE: US kidneys/renal and bladder DATE OF EXAM: 06/02/2019 COMPARISON: US 12/17/13 CLINICAL HISTORY: 68-year-old male N18.9 Chronic Kidney Disease. TECHNIQUE: Multiple sonographic images of the kidneys and bladder are obtained. FINDINGS: EXAM MEASUREMENTS: Right Kidney: 8.4 x 4.6 x 4.1 cm Left Kidney: 8.7 x 4.0 x 4.0 cm Post Void Residual Volume: 71.8 mL Right Kidney: No hydronephrosis. Small in size, 2 renal cysts: Upper pole = 1.9 x 1.7 x 1.6 cm Upper/mid pole = 0.9 x 0.9 x 0.8 cm Left Kidney: No hydronephrosis. Small in size Bladder: abnormal post void residual. Irregular contour and wall thickening suggests underlying trabe culations. Some prominence to the region of the prostate gland. Bilateral Jets seen: Yes Normal Post Void Residual: No Incidental finding of mid Abdominal Aortic Aneurysm = 4.9 x 4.6 x 4.4 cm with prominent mural based t hrombus/plaque. Luminal diameter = 1.9 x 1.7 cm . IMPRESSION: 1. No hydronephrosis. 2. Small kidneys suggesting underlying chronic medical renal disease. 3. Increased postvoid bladder volume (72 mL) in keeping with urinary retention. 3. Trabeculated appearance to the bladder with wall thickening and prominence to the prostate gland. Correlate for possible chronic bladder outlet obstruction.
== END | disposition home or self-care (01) ==
LOC: RADUSWWP 12:49
PROVIDERS: ATTEND Internal Medicine Geriatric Medicine
DX: N27.1 Small kidney, bilateral (principal); R33.9 Retention of urine, unspecified
CPT/HCPCS: 76770

== ENCOUNTER 2019-10-06 10:34 | Emergency (ER) | payer BC, MEDICARE ==
--- NOTE | 2019-10-06 11:42 | CT ---
EXAMINATION TYPE: CT brain ofelia elena DATE OF EXAM: 10/06/2019 COMPARISON: None HISTORY: Fall, syncope CT DLP: [address] of the brain was performed. The ventricles, basal cisterns and sulci overlying the cerebral convexities demonstrate mild enlargem ent. There is no evidence for intracranial hemorrhage or sulcal effacement. There is decreased attenuatio n about the periventricular white matter and deep white matter of both cerebral hemispheres, compatib le with chronic small vessel ischemia. No mass effects are seen. If symptoms persist consider MRI. Osseous calvarium is intact. Left parietal scalp hematoma. IMPRESSION: 1. Age related atrophic and chronic small vessel ischemic change without acute intracranial process seen at this time. CT Cervical Spine: Unenhanced CT of the cervical spine was performed with bone and soft tissue window settings submitted . Coronal and sagittal reconstruction is obtained. There is normal alignment and prevertebral soft tissues. No evidence for acute cervical fracture . Scattered degenerative disc disease and spondylosis. Biapical scarring. IMPRESSION: 1. No evidence for acute fracture or subluxation of the cervical spine.
--- NOTE | 2019-10-06 11:47 | ED ---
General Adult HPI - General Chief complaint: Syncope Stated complaint: Syncope Time Seen by Provider: 10/06/19 10:35 Source: patient, EMS Mode of arrival: EMS - History of Present Illness Initial comments: Dictation was produced using LoveThis dictation software. please excuse any grammatical, word or spelling errors. Chief Complaint: 68-year-old male presents after episode of syncope. History of Present Illness: 68-year-old male he has multiple comorbidities. Patient presents after episode of syncope today. Patient states that he was at [facility] office getting ultrasound of the abdomen. Patient has a history of abdominal aortic aneurysm. During that time patient had episode of syncope. Patient reports that he was feeling dizzy prior to the episode. Patient has history of heart failure and has had LifeVest in the past. Patient has a defibrillator in place. Patient reports that he was at the office when he started to feel dizzy. Patient spirits and episode of syncope. Didn't hit his head. Patient was transferred to the emergency department from clinic via EMS. Patient states he feels well at this time. Denies any abdominal symptoms. Chest pain or shortness of breath. Patient denies any dizziness at this time. Patient attributes his symptoms secondary to not eating breakfast in preparation for ultrasound studies today. The ROS documented in this emergency department record has been reviewed and confirmed by me. Those systems with pertinent positive or negative responses have been documented in the HPI. All other systems are other negative and/or noncontributory. PHYSICAL EXAM: General Impression: Alert and oriented x3, not in acute distress HEENT: Normocephalic atraumatic, extra-ocular movements intact, pupils equal and reactive to light bilaterally, mucous membranes moist. Cardiovascular: Heart regular rate and rhythm, S1&S2 audible, no murmurs, rubs or gallops Chest: Lungs clear to auscultation bilaterally, no rhonchi, no wheeze, no rales Abdomen: Bowel sounds present, pulsatile palpable abdominal mass Musculoskeletal: Pulses present and equal in all extremities, no peripheral edema Motor: no focal deficits noted Neurological: CN II-XII grossly intact, no focal motor or sensory deficits noted Skin: Intact with no visualized rashes Psych: Normal affect and mood ED course: 68-year-old male with multiple comorbidities presents with episode of syncope. Patient has a history of defibrillator, heart failure, dilated abdominal aortic aneurysm, COPD and diabetes. On arrival shows heart rate of 61, blood pressure of 100/62. Patient denies any abdominal symptoms whatsoever. Chart review shows that in May of this year he had an incidental finding of a 5 cm abdominal aortic aneurysm. Laboratory evaluation obtained showing normal CBC, normal coag panel. Metabolic panel shows cranial 2.05. Troponin is 0.02 tried to his baseline. Prematurity peptide 900. Chest x-ray is nonacute. Computed tomography scan of the head and C-spines shows no acute processes. AICD was interrogated showing no acute processes. Given patient's medical history I recommended to him that its best that he be admitted for inpatient syncope workup. Patient disagreed and wants to be discharged. Patient stands that he could have another episode of syncope and could suffer significant harm unknowingly. Patient states that this is happened before and this is from dehydration. Patient tolerated by mouth at bedside. Patient is willing to sign out AGAINST MEDICAL ADVICE.AMA macro Risks, Benefits, and Treatment alternatives were discussed in detail with the patient. The patient is alert and oriented X 3 and has the capacity to make an informed decision. The risks of increased morbidity including the possibly of were explained to and understood by the patient who is choosing to leave against medical advice. The patient is encouraged to return any time should they want further treatment and diagnostic investigation. Patient is notified of his results. Told to follow-up with cardiology and primary care physician. Patient understands that he should return to emergency Department with any hesitation especially if he experiences presyncope, syncope, chest pain or shortness of breath. EKG interpretation: Ventricular rate 22, sinus rhythm, MD interval 172, care is 86, QTC 446. No MD prolongation, no QTC prolongation, no ST or T-wave changes noted. EKG compared to 08/08/2018 showing no changes. Overall, this EKG is unremarkable - Related Data Home Medications Medication Instructions Recorded Confirmed Aspirin [Adult Low Dose Aspirin EC] 81 mg PO DAILY@1200 07/19/17 08/08/18 Atorvastatin [Lipitor] 40 mg PO HS@0000 07/19/17 08/08/18 Cilostazol [Pletal] 50 mg PO BID@0000,1200 07/19/17 08/08/18 Clopidogrel [Plavix] 75 mg PO DAILY@1200 07/19/17 08/08/18 Losartan Potassium [Cozaar] 25 mg PO DAILY@1200 07/19/17 08/08/18 Nitroglycerin Sl Tabs [Nitrostat] 0.4 mg SUBLINGUAL Q5M PRN 07/19/17 08/08/18 Spironolactone [Aldactone] 25 mg PO DAILY@1200 07/19/17 08/08/18 Carvedilol [Coreg] 3.125 mg PO BID@0000,1200 08/08/18 08/08/18 Previous Rx's Medication Instructions Recorded Nitroglycerin Sl Tabs [Nitrostat] 0.4 mg SUBLINGUAL Q5M PRN #100 tab 08/08/18 Allergies Allergy/AdvReac Type Severity Reaction Status Date / Time Egg Derived Allergy Abdominal Verified 08/08/18 14:17 Pain Poultry Allergy Abdominal Verified 08/08/18 14:17 Pain NSAIDS (Non-Steroidal AdvReac KIDNEY Verified 08/08/18 14:17 Anti-Inflamma ISSUES Review of Systems ROS Statement: Those systems with pertinent positive or pertinent negative responses have been documented in the HPI. ROS Other: All systems not noted in ROS Statement are negative. Past Medical History Past Medical History: COPD, Diabetes Mellitus, Myocardial Infarction ([place]) Additional Past Medical History / Comment(s): pt stated EF of 25% new life vest. Last Myocardial Infarction Date:: 07/13/2017 History of Any Multi-Drug Resistant Organisms: None Reported Past Surgical History: Heart Catheterization With Stent Additional Past Surgical History / Comment(s): 1 stent placed approx [address] Norwood, 2 stents placed Jul 13 at [facility] ( D/C on 07-18) Past Anesthesia/Blood Transfusion Reactions: No Reported Reaction Date of Last Stent Placement:: 07-13-2017 Past Psychological History: No Psychological Hx Reported Smoking Status: Former smoker - Past Family History Mother Family Medical History: No Reported History Additional Family Medical History / Comment(s): Mother is alive at age 92 with history of dementia. Father Family Medical History: Cancer Additional Family Medical History / Comment(s): SKIN CANCER Sister(s) Family Medical History: Cancer Additional Family Medical History / Comment(s): BREAST CANCER Course Vital Signs 10/06/19 10/06/19 10/06/19 10:39 12:00 12:10 Temperature 98.3 F 98.7 F Pulse Rate 61 59 L 60 Respiratory 16 18 16 Rate Blood Pressure 100/62 91/62 91/62 O2 Sat by Pulse 98 96 96 Oximetry 10/06/19 13:00 Temperature Pulse Rate 67 Respiratory 17 Rate Blood Pressure 91/62 O2 Sat by Pulse 95 Oximetry Medical Decision Making - Lab Data Result diagrams: 10/06/19 12:29 10/06/19 12:29 Lab Results 10/06/19 10/06/19 10/06/19 Range/Units 12:12 12: 12:29 WBC 8.4 (3.8-10.6) k/uL RBC 4.52 (4.30-5.90) m/uL Hgb 13.6 (13.0-17.5) gm/dL Hct 41.1 (39.0-53.0) % MCV 90.9 (80.0-100.0) fL MCH 30.0 (25.0-35.0) pg MCHC 33.0 (31.0-37.0) g/dL RDW 12.6 (11.5-15.5) % Plt Count 184 (150-450) k/uL Neutrophils % 78 % Lymphocytes % 8 % Monocytes % 9 % Eosinophils % 1 % Basophils % 0 % Neutrophils # 6.5 (1.3-7.7) k/uL Lymphocytes # 0.7 L (1.0-4.8) k/uL Monocytes # 0.8 (0-1.0) k/uL Eosinophils # 0.1 (0-0.7) k/uL Basophils # 0.0 (0-0.2) k/uL PT (9.0-12.0) sec INR (<1.2) APTT (22.0-30.0) sec Sodium 137 (137-145) mmol/L Potassium 4.6 (3.5-5.1) mmol/L Chloride 106 (98-107) mmol/L Carbon Dioxide 22 (22-30) mmol/L Anion Gap 9 mmol/L BUN 24 H (9-20) mg/dL Creatinine 2.05 H (0.66-1.25) mg/dL Est GFR (CKD-EPI)AfAm 38 (>60 ml/min/1.73 sqM) Est GFR (CKD-EPI)NonAf 32 (>60 ml/min/1.73 sqM) Glucose 98 (74-99) mg/dL POC Glucose (mg/dL) 86 (75-99) mg/dL POC Glu Instrument Technician Apprentice ID Vandana Espinoza Plasma Lactic Acid Raheel (0.7-2.0) mmol/L Calcium 8.4 (8.4-10.2) mg/dL Magnesium 1.9 (1.6-2.3) mg/dL Total Bilirubin 0.5 (0.2-1.3) mg/dL AST 26 (17-59) U/L ALT 19 (4-49) U/L Alkaline Phosphatase 91 (38-126) U/L Troponin I (0.000-0.034) ng/mL NT-Pro-B Natriuret Pep pg/mL Total Protein 6.8 (6.3-8.2) g/dL Albumin 3.7 (3.5-5.0) g/dL 10/06/19 10/06/19 10/06/19 Range/Units 12:29 12:29 12:29 WBC (3.8-10.6) k/uL RBC (4.30-5.90) m/uL Hgb (13.0-17.5) gm/dL Hct (39.0-53.0) % MCV (80.0-100.0) fL MCH (25.0-35.0) pg MCHC (31.0-37.0) g/dL RDW (11.5-15.5) % Plt Count (150-450) k/uL Neutrophils % % Lymphocytes % % Monocytes % % Eosinophils % % Basophils % % Neutrophils # (1.3-7.7) k/uL Lymphocytes # (1.0-4.8) k/uL Monocytes # (0-1.0) k/uL Eosinophils # (0-0.7) k/uL Basophils # (0-0.2) k/uL PT (9.0-12.0) sec INR (<1.2) APTT (22.0-30.0) sec Sodium (137-145) mmol/L Potassium (3.5-5.1) mmol/L Chloride (98-107) mmol/L Carbon Dioxide (22-30) mmol/L Anion Gap mmol/L BUN (9-20) mg/dL Creatinine (0.66-1.25) mg/dL Est GFR (CKD-EPI)AfAm (>60 ml/min/1.73 sqM) Est GFR (CKD-EPI)NonAf (>60 ml/min/1.73 sqM) Glucose (74-99) mg/dL POC Glucose (mg/dL) (75-99) mg/dL POC Glu Instrument Technician Apprentice ID Plasma Lactic Acid Raheel 1.2 (0.7-2.0) mmol/L Calcium (8.4-10.2) mg/dL Magnesium (1.6-2.3) mg/dL Total Bilirubin (0.2-1.3) mg/dL AST (17-59) U/L ALT (4-49) U/L Alkaline Phosphatase (38-126) U/L Troponin I 0.020 (0.000-0.034) ng/mL NT-Pro-B Natriuret Pep 938 pg/mL Total Protein (6.3-8.2) g/dL Albumin (3.5-5.0) g/dL 10/06/19 Range/Units 13:12 WBC (3.8-10.6) k/uL RBC (4.30-5.90) m/uL Hgb (13.0-17.5) gm/dL Hct (39.0-53.0) % MCV (80.0-100.0) fL MCH (25.0-35.0) pg MCHC (31.0-37.0) g/dL RDW (11.5-15.5) % Plt Count (150-450) k/uL Neutrophils % % Lymphocytes % % Monocytes % % Eosinophils % % Basophils % % Neutrophils # (1.3-7.7) k/uL Lymphocytes # (1.0-4.8) k/uL Monocytes # (0-1.0) k/uL Eosinophils # (0-0.7) k/uL Basophils # (0-0.2) k/uL PT 11.2 (9.0-12.0) sec INR 1.1 (<1.2) APTT 24.0 (22.0-30.0) sec Sodium (137-145) mmol/L Potassium (3.5-5.1) mmol/L Chloride (98-107) mmol/L Carbon Dioxide (22-30) mmol/L Anion Gap mmol/L BUN (9-20) mg/dL Creatinine (0.66-1.25) mg/dL Est GFR (CKD-EPI)AfAm (>60 ml/min/1.73 sqM) Est GFR (CKD-EPI)NonAf (>60 ml/min/1.73 sqM) Glucose (74-99) mg/dL POC Glucose (mg/dL) (75-99) mg/dL POC Glu Instrument Technician Apprentice ID Plasma Lactic Acid Raheel (0.7-2.0) mmol/L Calcium (8.4-10.2) mg/dL Magnesium (1.6-2.3) mg/dL Total Bilirubin (0.2-1.3) mg/dL AST (17-59) U/L ALT (4-49) U/L Alkaline Phosphatase (38-126) U/L Troponin I (0.000-0.034) ng/mL NT-Pro-B Natriuret Pep pg/mL Total Protein (6.3-8.2) g/dL Albumin (3.5-5.0) g/dL Disposition Clinical Impression: Syncope, Head contusion Disposition: Left Against Medical Advice Condition: Fair Instructions (If sedation given, give patient instructions): Syncope (ED) Referrals: Sammy Cardona MD [Primary Care Provider] - 1-2 days Time of Disposition: 13:47
--- NOTE | 2019-10-06 11:59 | XR ---
EXAMINATION TYPE: XR chest 2V DATE OF EXAM: 10/06/2019 COMPARISON: Prior chest 08/08/2018 HISTORY: Syncope, abnormal chest x-ray TECHNIQUE: Frontal and lateral views of the chest are obtained. FINDINGS: There is a generator in left pectoral region, lead within the right ventricle. There are ov erlying artifacts present. Increased lung volume may be due to underlying COPD. Aorta is dense. Ther e is no focal air space opacity, pleural effusion, or pneumothorax seen. The cardiac silhouette size is within normal limits. The osseous structures are intact. IMPRESSION: No acute cardiopulmonary process.
[2019-10-06 12:13] LABS: Glucose,Whole Blood 86 mg/dL (75-99)
[2019-10-06 12:41] LABS: Basophils % (A) 0 %; Eosinophils # (A) 0.1 k/uL (0-0.7); Eosinophils % (A) 1 %; HCT 41.1 % (39.0-53.0); HGB 13.6 gm/dL (13.0-17.5); Lymphocytes # (A) 0.7 k/uL (1.0-4.8); Lymphocytes % (A) 8 %; MCV 90.9 fL (80.0-100.0); Mean Platelet Volume 7.2; Monocytes # (A) 0.8 k/uL (0-1.0); Monocytes % (A) 9 %; Neutrophils # (A) 6.5 k/uL (1.3-7.7); Neutrophils % (A) 78 %; Platelet Count 184 k/uL (150-450); RBC 4.52 m/uL (4.30-5.90); RDW 12.6 % (11.5-15.5); WBC 8.4 k/uL (3.8-10.6)
[2019-10-06 12:52] LABS: Albumin 3.7 g/dL (3.5-5.0); Calcium 8.4 mg/dL (8.4-10.2); Magnesium 1.9 mg/dL (1.6-2.3); Potassium 4.6 mmol/L (3.5-5.1); Total Bilirubin 0.5 mg/dL (0.2-1.3); Total Protein 6.8 g/dL (6.3-8.2)
[2019-10-06 13:42] LABS: INR 1.1 (<1.2); Prothrombin Time 11.2 sec (9.0-12.0)
[2019-10-06 14:07] VITALS: BP 103/61; PULSE 66; RESP 18; TEMP 98.2
== END 2019-10-06 13:55 | disposition left against medical advice (07) ==
LOC: EC 10:34
DX: S00.03XA Contusion of scalp, initial encounter (principal); R55 Syncope and collapse; E11.9 Type 2 diabetes mellitus without complications; I50.9 Heart failure, unspecified; I25.2 Old myocardial infarction; I71.4 Abdominal aortic aneurysm, without rupture; Z79.02 Long term (current) use of antithrombotics/antiplatelets; Z79.82 Long term (current) use of aspirin; Z79.899 Other long term (current) drug therapy; Z88.6 Allergy status to analgesic agent; Z91.012 Allergy to eggs; Z91.018 Allergy to other foods; Z87.891 Personal history of nicotine dependence; Z95.5 Presence of coronary angioplasty implant and graft; Z95.810 Presence of automatic (implantable) cardiac defibrillator; X58.XXXA Exposure to other specified factors, initial encounter
CPT/HCPCS: 36415; 70450; 71046; 72125; 80053; 83605; 83735; 83880; 84484; 85025; 85610; 85730; 93005; 99285

== ENCOUNTER → 2020-03-23 | Outpatient (CLI) | payer BC ==
--- NOTE | 2020-03-23 08:37 | CT ---
EXAMINATION TYPE: CT abdomen pelvis wo con DATE OF EXAM: 03/23/2020 COMPARISON: Ultrasound 06/02/2019 HISTORY: AAA CT DLP: 377 mGycm Automated exposure control for dose reduction was used. TECHNIQUE: Helical acquisition of images was performed from the lung bases through the pelvis. FINDINGS: LUNG BASES: No significant abnormality is appreciated. Heart size is prominent there is a cardiac zoe d. LIVER/GB: There is a 6 mm hypodensity within the left lobe of the liver too small to characterize but statistically most likely related to a cyst. PANCREAS: Pancreatic calcifications noted. Assessment for mass limited by noncontrast technique. SPLEEN: No significant abnormality is seen. ADRENALS: No significant abnormality is seen. KIDNEYS: Simple appearing right renal cyst noted.. ADENOPATHY: None visualized. OSSEOUS STRUCTURES: Hypertrophic and degenerative change of the spine. BOWEL: No significant abnormality is seen. OTHER: There is a large aneurysm of the aorta. Measures approximately 5.3 cm in greatest AP dimension . There is intimal displacement anteriorly. Maximal transverse dimension is 4.8 cm. Originates approx imately 3 cm below renal artery. There is extension into the iliac arteries on the right measuring a maximal diameter of 3.5 cm compatible with aneurysmal dilation. Extensive atherosclerotic plaque note d. Linear hyperdensity along the anterior maxillary margin of the aneurysm sac could represent displa ranjeet intima. Intracranial hemorrhage not excluded. This appears increased in size from the ultrasound of 06/02/2019 where it measured 4.9 cm in maximal dimension. Case discussed with referring physician. The left common iliac artery appears to be of normal caliber with diffuse severe atherosclerotic dise ase. Localized occlusion of the left common iliac artery not excluded. IMPRESSION: 1. Large infrarenal abdominal aortic aneurysm measuring 5.3 x 4.8 cm with extension into the right il iac artery. Maximal dimension of the right iliac artery measures aneurysmal at 3.5 cm. Aneurysm origi nates approximately 3 cm below the renal artery. Hyperdensity along the anterior margin of the aneury sm sac could represent area of mural thrombus, dissection or possibly intramural hemorrhage. Case dis cussed with referring clinician. 2. Correlate for chronic pancreatitis.
== END | disposition home or self-care (01) ==
LOC: RADCTMAIN 07:48
PROVIDERS: ATTEND Internal Medicine Interventional Cardiology
DX: I71.4 Abdominal aortic aneurysm, without rupture (principal)
CPT/HCPCS: 74176

== ENCOUNTER → 2021-07-01 | Outpatient (CLI) | payer BC ==
--- NOTE | 2021-07-04 09:25 | CT ---
EXAMINATION TYPE: CT abdomen pelvis wo con DATE OF EXAM: 07/01/2021 COMPARISON: 03/23/2020 HISTORY: 70-year-old male I71.4, Abdominal aortic aneurysm w/o rupture. CT DLP: 537 mGycm. Automated exposure control for dose reduction was used. TECHNIQUE: Contiguous axial scanning of the abdomen and pelvis without IV contrast. Coronal and sagit lisstete reconstructions performed. FINDINGS: Right ventricular ICD lead. Heart normal size. Some strandy atelectasis posterior right base. Stable subcentimeter hypodensity in segment IVb left liver lobe too small for accurate CT characteriz ation, likely cysts. Otherwise, noncontrast appearance of the liver, gallbladder, adrenal glands, and spleen show no gross abnormal value. Stable calcifications posterior pancreatic head region. Pancreas otherwise shows no gross abnormal jb dy. A couple right upper pole renal cyst measuring 2.5 and 1.4 cm, unchanged. A thinly peripherally calcified exophytic lesion from the medial upper pole left kidney measures 2.1 cm, unchanged, likely mildly complex cyst and likely benign. No dilated small bowel, free fluid, or free air. Some prominent fluid filled small bowel loops lower abdomen and pelvis likely transient. No mesenteric or retroperitoneal lymphadenopathy. Mild to moderate scattered stool and sigmoid diverticulosis. No pericolic inflammatory change. Bladder urine distended. Prostate gland enlargement 4.9 cm wide. No abnormal fluid collection the pel vis or pelvic lymphadenopathy. Lower descending thoracic aorta mildly aneurysmal at 3.0 cm, unchanged. Upper abdominal aorta mildly aneurysmal at 3.0 cm, unchanged. Fusiform infrarenal AAA measuring up to 5.8 cm x 5.5 cm versus 5.5 x 5.2 cm, previously. Peripheral m ural based thrombus and calcification is redemonstrated. Distal abdominal aorta also aneurysmal measuring up to 3.3 cm versus 3.1 cm, previously. Proximal right common iliac artery aneurysmal at 2.0 cm, unchanged. Distal right common iliac artery markedly aneurysmal at 3.9 cm versus 3.8 cm, previously. Bones: Facet arthropathy lower lumbar spine. IMPRESSION: 1. Fusiform infrarenal AAA minimally larger at 5.8 x 5.5 cm (versus 5.5 x 5.2 cm, previously). 2. Aneurysm proximal right common iliac artery at 2.0 cm is unchanged. More marked aneurysm distal r ight common iliac artery at 3.9 cm versus 3.8 cm, previously.
== END | disposition home or self-care (01) ==
LOC: RADCTMAIN 17:08
PROVIDERS: ATTEND Internal Medicine Interventional Cardiology
DX: I72.3 Aneurysm of iliac artery (principal); I71.4 Abdominal aortic aneurysm, without rupture
CPT/HCPCS: 74176

== ENCOUNTER → 2023-11-23 | Outpatient (CLI) | payer MEDICARE ==
[2023-11-23 12:35] LABS: African American GFR (CKD) 73 (>60 ml/min/1.73 sqM); Blood Urea Nitrogen 20 mg/dL (9-20); Non-African American GFR(CKD) 63 (>60 ml/min/1.73 sqM)
--- NOTE | 2023-11-23 15:03 | CT ---
EXAMINATION TYPE: CT angio abdomen pelvis CT DLP: 485 mGycm, Automated exposure control for dose reduction was used. DATE OF EXAM: 11/23/2023 1:35 PM COMPARISON: 07/01/2021 CLINICAL INDICATION:Male, 72 years old with history of I71.43 INFRARENAL ABDOMINAL AORTIC ANEURYSM, W ITHO; PHH, Infrarenal abdominal aortic aneurysm w/out rupture TECHNIQUE: Multiple thin slice sub-millimeter images were obtained after administration of contrast. 3-D reconstructed images and maximum intensity projection images were obtained. CT angio abdomen pel vis CT Contrast: Contrast used:80 mL of Isovue 370 with IV Contrast, Oral contrast used: without Oral Contrast None FINDINGS: CTA Abdomen and pelvis: Infrarenal abdominal aortic aneurysm measuring up to 65 x 62 mm with mural th rombus. Previously this measured up to 58 x 55 5 mm. The remainder of the aorta demonstrates scattere d atherosclerotic plaque and calcifications. The visualized descending thoracic aorta is within emmett l limits. The celiac axis, the superior mesenteric artery and bilateral renal arteries are patent. Th e infundibulum of the r and superior mesenteric artery is dilated up to 14 mm. Is right common iliac artery aneurysm extends dilated up to 47 mm with mural thrombus present. Previo usly this measured up to 39 mm. The left common iliac artery appears occluded. Extending from its troy gin through the external iliac artery with reconstitution at the common femoral artery. LOWER CHEST: No evidence of focal consolidation, pneumothorax or pleural effusion. LIVER: Unremarkable GALLBLADDER AND BILE DUCTS: Unremarkable. PANCREAS: Unremarkable. SPLEEN: Unremarkable. ADRENAL GLANDS: Unremarkable. KIDNEYS AND URETERS: No evidence of hydronephrosis or renal calculus. The ureters are unremarkable. B ilateral renal cysts. PELVIS BLADDER: Unremarkable REPRODUCTIVE: Unremarkable. ABDOMEN & PELVIS STOMACH AND BOWEL: No evidence of bowel obstruction. Scattered colonic diverticula. PERITONEUM: No evidence of pneumoperitoneum or free fluid. MUSCULOSKELETAL: Mild disc degeneration changes are present throughout the thoracolumbar spine. LYMPH NODES: No gross evidence for lymphadenopathy. SOFT TISSUE/ABDOMINAL WALL: Unremarkable IMPRESSION: Vascular surgery consultation is recommended if not reperformed. 1. 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 2. Infrarenal abdominal aortic aneurysm measuring up to 65 mm with mural thrombus. 3. 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 4. Dilated infundibulum of the superior mesenteric artery. 5. Severe atherosclerosis of the arterial vasculature.
== END | disposition home or self-care (01) ==
LOC: RADCTMAIN 11:43
PROVIDERS: ATTEND Internal Medicine Geriatric Medicine
DX: I71.43 Infrarenal abdominal aortic aneurysm, without rupture (principal); I74.5 Embolism and thrombosis of iliac artery; I72.3 Aneurysm of iliac artery; I70.8 Atherosclerosis of other arteries; I72.8 Aneurysm of other specified arteries; I21.9 Acute myocardial infarction, unspecified
CPT/HCPCS: 82565; 84520; 36415; 74174; Q9967

== ENCOUNTER → 2024-02-18 | Outpatient (CLI) | payer MEDICARE ==
[2024-02-18 13:23] LABS: African American GFR (CKD) 50 (>60 ml/min/1.73 sqM); Blood Urea Nitrogen 23 mg/dL (9-20); Non-African American GFR(CKD) 43 (>60 ml/min/1.73 sqM)
--- NOTE | 2024-02-19 11:43 | CT ---
EXAMINATION TYPE: CT angio abd aorta w/Runoff CT DLP: 1334.1 mGycm, Automated exposure control for dose reduction was used. DATE OF EXAM: 02/18/2024 2:33 PM COMPARISON: . . CLINICAL INDICATION:Male, 73 years old with history of I71.4 AAA; PHH, AAA TECHNIQUE: Multiple thin slice sub-millimeter images were obtained after administration of contrast. 3-D reconstructed images and maximum intensity projection images were obtained. CT angio abd aorta w /Runoff CT Contrast: Contrast used: 89 mL of Isovue 370 with IV Contrast, Oral contrast used: None FINDINGS: CTA Abdomen and pelvis: The abdominal aorta aneurysm has been treated with metallic mesh stent graft. Simple cysts are seen in the right kidney which require no follow-up. Atherosclerotic plaquing is identified within the abdominal aorta. The origins of the superior mesenteric artery, renal arteries , inferior mesenteric artery, and celiac axis are patent. Aneurysm in the right common iliac artery had been treated with metallic mesh stent graft. The left common iliac artery is normal caliber and m orphology but contains a moderately high calcific plaque burden. CTA Lower extremities: Right: The common femoral and superficial femoral arteries are patent. The popliteal artery is patent . Anterior and posterior tibial arteries as well as the peroneal artery are patent. Anterior and post erior tibial arteries cross the ankle. Left: The common femoral and superficial femoral arteries are patent. The popliteal artery is patent. There is only two-vessel runoff in the proximal two thirds of the left leg. There is a three-vess el runoff in the right calf. Anterior and posterior tibial arteries cross the ankle. LOWER CHEST: No evidence of focal consolidation, pneumothorax or pleural effusion. LIVER: Unremarkable GALLBLADDER AND BILE DUCTS: Unremarkable. PANCREAS: Unremarkable. SPLEEN: Unremarkable. ADRENAL GLANDS: Unremarkable. KIDNEYS AND URETERS: No evidence of hydronephrosis or renal calculus. The ureters are unremarkable. PELVIS BLADDER: Unremarkable REPRODUCTIVE: Unremarkable. ABDOMEN & PELVIS STOMACH AND BOWEL: Stomach and duodenum are otherwise unremarkable No evidence of bowel obstruction. PERITONEUM: No evidence of pneumoperitoneum or free fluid. VASCULATURE: No evidence of aortic aneurysm. MUSCULOSKELETAL: No acute osseous abnormalities LYMPH NODES: No gross evidence for lymphadenopathy. SOFT TISSUE/ABDOMINAL WALL: Unremarkable IMPRESSION 1. 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 Atherosclerotic disease involving abdominal aorta and lower extremity vasculature. 3. At least two vessels are seen crossing the right ankle joint. Vessels in the lower third of the left calf and ankle are not opacified either due to occlusion or timing issues of the contrast bolus
== END | disposition home or self-care (01) ==
LOC: RADCTMAIN 12:06
PROVIDERS: ATTEND Surgery
DX: I72.3 Aneurysm of iliac artery (principal); I70.0 Atherosclerosis of aorta; I71.40 Abdominal aortic aneurysm, without rupture, unspecified
CPT/HCPCS: 82565; 84520; 75635; 36415; Q9967

== ENCOUNTER 2025-02-18 05:17 | Observation (INO) | payer MEDICARE ==
[2025-02-18 05:21] VITALS: TEMP 97.8
--- NOTE | 2025-02-18 05:26 | ED ---
Chest Pain HPI - General Chief Complaint: Chest Pain Stated Complaint: Chest Pain Time Seen by Provider: 02/18/25 05:25 Source: patient, RN notes reviewed, old records reviewed Mode of arrival: ambulatory Limitations: no limitations - History of Present Illness Initial Comments: This is a 74-year-old male to the ER for evaluation today. Patient presents today for evaluation regards to chest pain history of prior [place] multiple stents coming with chest pain that woke him up from sleep tonight. Patient took nitro and on arrival to the ER chest pain is resolved. No shortness of breath no other complaints been feeling well lately MD Complaint: chest pain -: hour(s) Onset: during rest, awoke with symptoms Pain Location: left chest Pain Radiation: none Severity: moderate Severity scale (1-10): 5 Quality: tightness, heaviness Consistency: constant, now resolved (With nitro) Improves With: nitroglycerin Worsens With: nothing Anginal Symptoms: sense of impending doom Other Symptoms: palpitations Treatments Prior to Arrival: none - Related Data Home Medications Medication Instructions Recorded Confirmed Aspirin [Adult Low Dose Aspirin EC] 81 mg PO DAILY 07/19/17 02/18/25 Spironolactone [Aldactone] 25 mg PO DAILY 07/19/17 02/18/25 carvediloL [Coreg] 3.125 mg PO BID 08/08/18 02/18/25 Amoxic-Pot Clav 875-125Mg 1 tab PO BID 02/18/25 02/18/25 [Augmentin 875-125] Atorvastatin [Lipitor] 40 mg PO HS 02/18/25 02/18/25 Bumetanide [BUMEX] 0.5 mg PO MOWEFR 02/18/25 02/18/25 Chlorhexidine Gluconate [Peridex] 30 ml PO TID 02/18/25 02/18/25 HYDROcodone/APAP 10-325MG [[place] 1 tab PO Q8H PRN 02/18/25 02/18/25 10-325] Ibuprofen [Motrin] 800 mg PO Q8H PRN 02/18/25 02/18/25 Sacubitril/Valsartan [Entresto 49 1 tab PO BID 02/18/25 02/18/25 mg-51 mg Tablet] allopurinoL [Zyloprim] 100 mg PO DAILY 02/18/25 02/18/25 Previous Rx's Medication Instructions Recorded Nitroglycerin Sl Tabs [Nitrostat] 0.4 mg SUBLINGUAL Q5M PRN #100 tab 08/08/18 Allergies Allergy/AdvReac Type Severity Reaction Status Date / Time Egg Derived Allergy Abdominal Verified 02/18/25 10:44 Pain Poultry Allergy Abdominal Verified 02/18/25 10:44 Pain NSAIDS (Non-Steroidal AdvReac KIDNEY Verified 02/18/25 10:44 Anti-Inflamma ISSUES Review of Systems ROS Statement: Those systems with pertinent positive or pertinent negative responses have been documented in the HPI. ROS Other: All systems not noted in ROS Statement are negative. EKG Findings - EKG Comments: EKG Findings:: EKG sinus bradycardia 53 MN 166 QRS 102 QTc 411 - EKG Results: EKG: interpreted by ADRIAN Past Medical History Past Medical History: COPD, Diabetes Mellitus, Myocardial Infarction ([place]) Additional Past Medical History / Comment(s): pt stated EF of 25% new life vest. AORTIC ANEUYRSYM. Last Myocardial Infarction Date:: 07/13/2017 History of Any Multi-Drug Resistant Organisms: None Reported Past Surgical History: Heart Catheterization With Stent Additional Past Surgical History / Comment(s): 1 stent placed approx [address] Norwood, 2 stents placed Jul 13 at [facility] ( D/C on 07-18) Past Anesthesia/Blood Transfusion Reactions: No Reported Reaction Date of Last Stent Placement:: 07-13-2017 Past Psychological History: No Psychological Hx Reported Smoking Status: Never smoker Past Alcohol Use History: None Reported Past Drug Use History: None Reported - Past Family History Father Family Medical History: Cancer Additional Family Medical History / Comment(s): SKIN CANCER Sister(s) Family Medical History: Cancer Additional Family Medical History / Comment(s): BREAST CANCER General Exam Limitations: no limitations General appearance: alert, in no apparent distress Head exam: Present: atraumatic, normocephalic, normal inspection Eye exam: Present: normal appearance, PERRL, EOMI. Absent: scleral icterus, conjunctival injection, periorbital swelling ENT exam: Present: normal exam, mucous membranes moist Neck exam: Present: normal inspection. Absent: tenderness, meningismus, lymphadenopathy Respiratory exam: Present: normal lung sounds bilaterally. Absent: respiratory distress, wheezes, rales, rhonchi, stridor Cardiovascular Exam: Present: regular rate, normal rhythm, normal heart sounds. Absent: systolic murmur, diastolic murmur, rubs, gallop, clicks GI/Abdominal exam: Present: soft, normal bowel sounds. Absent: distended, tenderness, guarding, rebound, rigid Extremities exam: Present: normal inspection, full ROM, normal capillary refill. Absent: tenderness, pedal edema, joint swelling, calf tenderness Back exam: Present: normal inspection Neurological exam: Present: alert, oriented X3, CN II-XII intact Psychiatric exam: Present: normal affect, normal mood Skin exam: Present: warm, dry, intact, normal color. Absent: rash Course Vital Signs 02/18/25 02/18/25 02/18/25 05:18 05:45 07:47 Temperature 97.8 F Pulse Rate 59 L 55 L 54 L Respiratory 18 16 20 Rate Blood Pressure 119/70 121/75 128/76 O2 Sat by Pulse 94 L 98 99 Oximetry 02/18/25 02/18/25 02/18/25 09:01 11:02 12:00 Temperature Pulse Rate 53 L 52 L 55 L Respiratory 20 20 20 Rate Blood Pressure 129/68 144/77 112/66 O2 Sat by Pulse 96 96 96 Oximetry - Reevaluation(s) Reevaluation #1: 02/18/25 05:53 Records reviewed Reevaluation #2: Patient's symptoms are improved here in the ER but still with chest pain Reevaluation #3: Patient informed of results and questions answered Reevaluation #4: Was pt. sent in by a medical professional or institution (, PA, TRUCK GUARD, urgent care, hospital, or fpc...) When possible be specific @ -no Did you speak to anyone other than the patient for history (EMS, parent, family, police, friend...)? What history was obtained from this source @ -no Did you review nursing and triage notes (agree or disagree)? Why? @ -agree Are old charts reviewed (outside hosp., previous admission, EMS record, old EKG, old radiological studies, urgent care reports/EKG's, fpc records)? Report findings @ -yes Differential Diagnosis (chest pain, altered mental status, abdominal pain women, abdominal pain men, vaginal bleeding, weakness, fever, dyspnea, syncope, headache, dizziness, GI bleed, back pain, seizure, CVA, palpatations, mental health, musculoskeletal)? @ -prior EKG interpreted by me (3pts min.). @ -yes X-rays interpreted by me (1pt min.). @ -yes negative for acute disease CT interpreted by me (1pt min.). @ -no U/S interpreted by me (1pt. min.). @ -no What testing was considered but not performed or refused? (CT, X-rays, U/S, labs)? Why? @ -none What meds were considered but not given or refused? Why? @ -none Did you discuss the management of the patient with other professionals (professionals i.e. Dr., PA, TRUCK GUARD, lab, RT, psych nurse, school social worker, mainstreaming facilitator, teacher, ordnance officer, renal case manager)? Give summary @ -no Was smoking cessation discussed for >3mins.? @ -no Was critical care preformed (if so, how long)? @ -yes31 Were there social determinants of health that impacted care today? How? (Homelessness, low income, unemployed, alcoholism, drug addiction, transportation, low edu. Level, literacy, decrease access to med. care, fdc, rehab)? @ -none Was there de-escalation of care discussed even if they declined (Discuss DNR or withdrawal of care, Hospice)? DNR status @ -no What co-morbidities impacted this encounter? (DM, HTN, Smoking, COPD, CAD, Cancer, CVA, ARF, Chemo, Hep., AIDS, mental health diagnosis, sleep apnea, morbid obesity)? @ -none Was patient admitted / discharged? Hospital course, mention meds given and route, prescriptions, significant lab abnormalities, going to OR and other pertinent info. @ - 74 male with acute chest pain history of CAD and patient will be admitted for non-ST elevated [place] UA and chest pain Admitted non-STEMI with chest pain Undiagnosed new problem with uncertain prognosis? @ -no Drug Therapy requiring intensive monitoring for toxicity (Heparin, Nitro, Insulin, Cardizem)? @ -no Were any procedures done? @ -no Diagnosis/symptom? @ - Acute, or Chronic, or Acute on Chronic? @ -Acute Uncomplicated (without systemic symptoms) or Complicated (systemic symptoms)? @ -Complicated Side effects of treatment? @ -no Exacerbation, Progression, or Severe Exacerbation? @ -exacerbation Poses a threat to life or bodily function? How? (Chest pain, [place], [place], pneumonia, PE, COPD, DKA, ARF, appy, cholecystitis, CVA, Diverticulitis, Homicidal, Suicidal, threat to staff... and all critical care pts) @ -yes elevated troponin Reevaluation #5: Differential Chest Pain: Stable Angina, Unstable Angina, STEMI, NSTEMI Aortic Dissection, Pneumothorax, Musculoskeletal, Esophageal Spasm GERD, Cholecystitis, Pancreatitis, Zoster, this is not meant to be an all-inclusive list. Chest Pain MDM - MDM 74 male with acute chest pain history of CAD and patient will be admitted for non-ST elevated [place] UA and chest pain Critical Care Time Critical Care Time: Yes Total Critical Care Time: 31 Disposition Clinical Impression: Chest pain Disposition: ADMITTED IP TO THIS HOSP Condition: Fair Is patient prescribed a controlled substance at d/c from ED?: No Time of Disposition: 06:30
[2025-02-18 05:42] LABS: Basophils # (A) 0.08 10*3/uL (0.00-0.10); Basophils % (A) 0.9 %; Eosinophils # (A) 1.17 10*3/uL (0.04-0.35); Eosinophils % (A) 13.1 %; HCT 37.2 % (39.6-50.0); HGB 12.3 g/dL (13.0-17.0); Lymphocytes # (A) 2.48 10*3/uL (0.90-5.00); Lymphocytes % (A) 27.8 %; MCH 31.4 pg (27.0-32.0); MCHC 33.1 g/dL (32.0-37.0); MCV 94.9 fL (80.0-97.0); Mean Platelet Volume 9.3 fL (9.5-12.2); Monocytes # (A) 1.25 10*3/uL (0.20-1.00); Neutrophils % (A) 43.9 %; Platelet Count 252 10*3/uL (140-440); RBC 3.92 10*6/uL (4.40-5.60); RDW 12.8 % (11.5-14.5); WBC 8.91 10*3/uL (4.50-10.00)
[2025-02-18 05:56] LABS: ALT 11 U/L (4-49); AST 21 U/L (17-59); African American GFR (CKD) 30 (>60 ml/min/1.73 sqM); Albumin 3.8 g/dL (3.5-5.0); Alkaline Phosphatase 68 U/L (38-126); Anion Gap 11 mmol/L; Blood Urea Nitrogen 28 mg/dL (9-20); Carbon Dioxide 23 mmol/L (22-30); Chloride 100 mmol/L (98-107); Glucose 119 mg/dL (74-99); Lipase 44 U/L (23-300); Magnesium 1.8 mg/dL (1.6-2.3); Non-African American GFR(CKD) 26 (>60 ml/min/1.73 sqM); Potassium 5.1 mmol/L (3.5-5.1); Sodium 134 mmol/L (137-145); Total Bilirubin 0.6 mg/dL (0.2-1.3); Total Protein 6.9 g/dL (6.3-8.2)
--- NOTE | 2025-02-18 05:59 | XR ---
EXAM: XR Chest, 2 Views CLINICAL HISTORY: ITS.REASON XR Reason: Chest Pain TECHNIQUE: Frontal and lateral views of the chest. COMPARISON: X-ray dated 10/06/2019. FINDINGS: Lungs: Unremarkable. No consolidation. Pleural space: Unremarkable. No pneumothorax. Heart: Unremarkable. No cardiomegaly. Mediastinum: Unremarkable. Normal mediastinal contour. Bones/joints: Degenerative changes are seen within the spine and shoulders. No acute fracture. Vasculature: Calcifications overlie the aorta. Tubes, lines and devices: Cardiac conduction device overlies the left upper chest with a single lead overlying the cardiac silhouette. IMPRESSION: No acute findings in the chest.
[2025-02-18 06:03] LABS: Partial Thromboplastin Time 23.2 sec (22.0-30.0); Prothrombin Time 11.1 sec (10.0-12.5)
[2025-02-18] MEDS ORDERED: MORPHINE SULFATE 4 MG/ML SYRINGE IV PRN (06:08)
[2025-02-18] MEDS: ASPIRIN 81 MG PO STA (06:18)
[2025-02-18] MEDS: SODIUM CHLORIDE 0.9% 1,000 ML IV SCH ×2 (06:19→11:00)
[2025-02-18] MEDS ORDERED: HEPARIN SODIUM 1,000 UN/ML (10ML VL) IV PRN (06:25)
[2025-02-18] MEDS: HEPARIN SODIUM 1,000 UN/ML (10ML VL) IV ONE (06:44)
[2025-02-18] MEDS: HEPARIN SOD,PORK IN 0.45% NACL 25,000 UNIT in 0.45% NACL 1 250ML.BAG IV SCH (06:44)
[2025-02-18 07:48] VITALS: RESP 20
[2025-02-18] MEDS: ATORVASTATIN 80 MG TAB PO SCH (09:02)
[2025-02-18] MEDS: RANOLAZINE 500 MG TAB.ER.12H PO SCH (10:59)
[2025-02-18] MEDS: ISOSORBIDE MONONITRATE ER 30 MG TAB.ER.24H PO SCH (10:59)
[2025-02-18] MEDS: carvediloL 3.125 MG TAB PO SCH (11:00)
--- NOTE | 2025-02-18 11:38 | P.CRDCN ---
History of Present Illness History of present illness: HISTORY OF PRESENT ILLNESS: This is a 74-year-old male with a past medical history significant for coronary artery disease, ischemic cardiomyopathy, AICD implantation, hypertension, hyper lipidemia, carotid atherosclerosis, chronic kidney disease, peripheral arterial disease, AAA with endovascular repair with subsequent femorofemoral bypass, and nicotine dependence. Patient follows in the office with Dr. Norwood. We have been asked to see the patient in consultation for elevated troponins. Patient examined at the bedside in the emergency room. Patient states that he was having a dream that he was having a heart attack. He states that he awoke from his sleep and was having chest pain in the middle of his chest. He states that he took a nitro with some relief. He does report that he recently underwent some dental work and was placed on ibuprofen but he was told in the past not to take this. His doctor was supposed to call him in something stronger for pain but did not. Patient reports he did take some narcotics that he had leftover from a previous surgery. At the time of examination, patient denies any chest pain or pressure. Denies shortness of breath. The patient was found to have elevated troponins and was started on IV heparin. DIAGNOSTICS: - EKG reveals sinus bradycardia with inferior lateral T wave inversions; unchanged from previous EKG - Chest xray negative for acute process - Laboratory data: WBC 8.91. Hemoglobin 12.3. Platelet count 252. D-dimer 4.20. Sodium 134. Potassium 5.1. BUN 28. Creatinine 2.39. Troponin 0.106. 0.110. - Current home cardiac medications include Bumex 0.5 mg Sunday, Aldactone 25 mg daily, Entresto 49-51 mg twice daily, Lipitor 40 mg at night, carvedilol 3.125 mg twice a day. - Most recent echocardiogram obtained in April 2024 revealing EF 20%, apex akinetic. Small hypokinetic area of the inferior lateral wall from the base to the mid wall. Small akinetic area of the anterior septal wall from the base to the mid wall. There are small hypokinetic areas of the anterior and anterior lateral humphrey at the base. Small hypokinetic areas of inferior and inferior septal humphrey at the base. There is small akinetic area of the anterior and anterior lateral humphrey at the mid wall. There are small akinetic areas of the inferior and inferior septal humphrey at the mid wall. Mild LVH. Trace aortic regurgitation. Moderate mitral regurgitation, mild tricuspid regurgitation. - Cardiac catheterization history: 2017 revealing patent stent in the proximal LAD, mild disease in circumflex and right coronary artery REVIEW OF SYSTEMS: At the time of my exam: CONSTITUTIONAL: Denies fever or chills. HEENT: Denies blurred vision, vision changes, or eye pain. Denies hemoptysis CARDIOVASCULAR: Denies chest pain. Denies orthopnea. Denies PND. Denies palpitations RESPIRATORY: Denies shortness of breath. GASTROINTESTINAL: Denies abdominal pain. Denies nausea or vomiting. HEMATOLOGIC: Denies bleeding disorders. GENITOURINARY: Denies any blood in urine. SKIN: Denies pruitis. Denies rash. PHYSICAL EXAM: VITAL SIGNS: Reviewed. GENERAL: Well-developed in no acute distress. HEENT: Head is normocephalic. Pupils are equal, round. Sclerae anicteric. Mucous membranes of the mouth are moist. Neck supple. No JVD or thyromegaly LUNGS: Respirations even and unlabored. Lungs essentially clear to auscultation bilaterally. HEART: Regular rate and rhythm. S1 and S2 heard. ABDOMEN: Soft. Nondistended. Nontender. EXTREMITIES: Normal range of motion. No clubbing or cyanosis. Peripheral pulses intact. No lower extremity edema NEUROLOGIC: Awake and alert. Oriented x 3. ASSESSMENT: Chest pain, atypical, acute coronary syndrome unlikely Acute on chronic kidney disease Elevated D-dimer, rule out pulmonary embolism Elevated troponins, flat, likely secondary to poor renal clearance, no evidence of myocardial injury or ischemia thus far Coronary artery disease with previous stenting Ischemic cardiomyopathy, 20% History of AICD implantation Hypertension Hyperlipidemia Carotid atherosclerosis Peripheral arterial disease History of AAA with endovascular repair History of femorofemoral bypass Nicotine dependence PLAN: Resume aspirin, atorvastatin, and carvedilol Hold Bumex, Aldactone, and Entresto as creatinine is 2.39 today, and was 1.57 yesterday Begin normal saline at 50 cc an hour Repeat BMP in a.m. Add Imdur and Ranexa Continue IV heparin. VQ scan pending. 2D echo has been ordered. Await results. No indication for cardiac catheterization at this time Further recommendations pending patient course Nurse practitioner note has been reviewed by physician. Signing provider agrees with the documented findings, assessment, and plan of care documented by SPACE CONTROL SUPERVISOR as a scribe. Past Medical History Past Medical History: COPD, Diabetes Mellitus, Myocardial Infarction ([place]) Additional Past Medical History / Comment(s): pt stated EF of 25% new life vest. AORTIC ANEUYRSYM. Last Myocardial Infarction Date:: 07/13/2017 History of Any Multi-Drug Resistant Organisms: None Reported Past Surgical History: Heart Catheterization With Stent Additional Past Surgical History / Comment(s): 1 stent placed approx [address] Norwood, 2 stents placed Jul 13 at [facility] ( D/C on 07-18) Past Anesthesia/Blood Transfusion Reactions: No Reported Reaction Date of Last Stent Placement:: 07-13-2017 Past Psychological History: No Psychological Hx Reported Smoking Status: Never smoker Past Alcohol Use History: None Reported Past Drug Use History: None Reported - Past Family History Father Family Medical History: Cancer Additional Family Medical History / Comment(s): SKIN CANCER Sister(s) Family Medical History: Cancer Additional Family Medical History / Comment(s): BREAST CANCER Medications and Allergies Home Medications Medication Instructions Recorded Confirmed Type Aspirin [Adult Low Dose Aspirin EC] 81 mg PO DAILY 07/19/17 02/18/25 History Spironolactone [Aldactone] 25 mg PO DAILY 07/19/17 02/18/25 History Nitroglycerin Sl Tabs [Nitrostat] 0.4 mg SUBLINGUAL Q5M PRN #100 tab 08/08/18 02/18/25 Rx carvediloL [Coreg] 3.125 mg PO BID 08/08/18 02/18/25 History Amoxic-Pot Clav 875-125Mg 1 tab PO BID 02/18/25 02/18/25 History [Augmentin 875-125] Atorvastatin [Lipitor] 40 mg PO HS 02/18/25 02/18/25 History Bumetanide [BUMEX] 0.5 mg PO MOWEFR 02/18/25 02/18/25 History Chlorhexidine Gluconate [Peridex] 30 ml PO TID 02/18/25 02/18/25 History HYDROcodone/APAP 10-325MG [[place] 1 tab PO Q8H PRN 02/18/25 02/18/25 History 10-325] Ibuprofen [Motrin] 800 mg PO Q8H PRN 02/18/25 02/18/25 History Sacubitril/Valsartan [Entresto 49 1 tab PO BID 02/18/25 02/18/25 History mg-51 mg Tablet] allopurinoL [Zyloprim] 100 mg PO DAILY 02/18/25 02/18/25 History Allergies Allergy/AdvReac Type Severity Reaction Status Date / Time Egg Derived Allergy Abdominal Verified 02/18/25 10:44 Pain Poultry Allergy Abdominal Verified 02/18/25 10:44 Pain NSAIDS (Non-Steroidal AdvReac KIDNEY Verified 02/18/25 10:44 Anti-Inflamma ISSUES Physical Exam Vitals: Vital Signs Temp Pulse Resp BP Pulse Ox 02/18/25 11:02 52 L 20 144/77 96 02/18/25 09:01 53 L 20 129/68 96 02/18/25 07:47 54 L 20 128/76 99 02/18/25 05:45 55 L 16 121/75 98 02/18/25 05:18 97.8 F 59 L 18 119/70 94 L Intake and Output 02/17/25 02/18/25 02/18/25 22:59 06:59 14:59 Other: Weight 61.235 kg Results 02/18/25 05:29 02/18/25 05:29 Cardiac Enzymes 02/18/25 02/18/25 02/18/25 Range/Units 05:29 05:29 07:50 AST 21 (17-59) U/L Troponin I 0.106 H* 0.110 H* (0.000-0.034) ng/mL Coagulation 02/18/25 Range/Units 05:29 PT 11.1 (10.0-12.5) sec APTT 23.2 (22.0-30.0) sec CBC 02/18/25 Range/Units 05:29 WBC 8.91 (4.50-10.00) 10*3/uL RBC 3.92 L (4.40-5.60) 10*6/uL Hgb 12.3 L (13.0-17.0) g/dL Hct 37.2 L (39.6-50.0) % Plt Count 252 (140-440) 10*3/uL Comprehensive Metabolic Panel 02/18/25 Range/Units 05:29 Sodium 134 L (137-145) mmol/L Potassium 5.1 (3.5-5.1) mmol/L Chloride 100 (98-107) mmol/L Carbon Dioxide 23 (22-30) mmol/L BUN 28 H (9-20) mg/dL Creatinine 2.39 H (0.66-1.25) mg/dL Glucose 119 H (74-99) mg/dL Calcium 9.0 (8.4-10.2) mg/dL AST 21 (17-59) U/L ALT 11 (4-49) U/L Alkaline Phosphatase 68 (38-126) U/L Total Protein 6.9 (6.3-8.2) g/dL Albumin 3.8 (3.5-5.0) g/dL Current Medications Generic Name Dose Route Start Last Admin Trade Name Freq PRN Reason Stop Dose Admin Aspirin 81 mg 02/19/25 09:00 Aspirin 81 Mg PO DAILY [facility] Atorvastatin Calcium 80 mg 02/18/25 09:00 02/18/25 09:02 Atorvastatin 80 Mg Tab PO 80 mg DAILY RAMÍREZ Administration Carvedilol 3.125 mg 02/18/25 09:45 02/18/25 11:00 Carvedilol 3.125 Mg Tab PO 3.125 mg BID-W/MEALS RAMÍREZ Administration Heparin Sodium (Porcine) 0 unit 02/18/25 06:25 Heparin Sodium 1,000 Un/Ml (10ml Vl) IV PER PROTOCOL PRN Low PTT Protocol Sodium Chloride 1,000 mls @ 100 mls/hr 02/18/25 06:15 02/18/25 06:19 Saline 0.9% IV 100 mls/hr .Q10H RAMÍREZ Administration Heparin Sodium/Sodium Chloride 250 mls @ 7.348 mls/hr 02/18/25 06:30 02/18/25 06:44 25,000 unit/ Sodium Chloride IV 12 units/kg/hr .Q24H RAMÍREZ 7.348 mls/hr Administration Protocol 12 UNITS/KG/HR Sodium Chloride 1,000 mls @ 50 mls/hr 02/18/25 09:45 02/18/25 11:00 Saline 0.9% IV 50 mls/hr .Q20H RAMÍREZ Administration Isosorbide Mononitrate 30 mg 02/18/25 09:45 02/18/25 10:59 Isosorbide Mononitrate Er 30 Mg Tab.Er.24h PO 30 mg DAILY RAMÍREZ Administration Morphine Sulfate 4 mg 02/18/25 06:08 Morphine Sulfate 4 Mg/Ml Syringe IV Q4HR PRN Chest Pain Ranolazine 500 mg 02/18/25 09:45 02/18/25 10:59 Ranolazine 500 Mg Tab.Er.12h PO 500 mg Q12HR RAMÍREZ Administration Intake and Output 02/17/25 02/18/25 02/18/25 22:59 06:59 14:59 Other: Weight 61.235 kg 02/18/25 05:29 02/18/25 05:29
[2025-02-18] MEDS ORDERED: NITROGLYCERIN OINT 1 INCH/GM PACKET TOPICAL SCH (12:00)
--- NOTE | 2025-02-18 12:06 | NM ---
EXAMINATION TYPE: NM pul vent and perfuse DATE OF EXAM: 02/18/2025 CLINICAL INDICATION: Male, 74 years old with history of pe; shortness of breath COMPARISON: Chest x-ray earlier today TECHNIQUE: Utilizing inhalation of 67.7 mCi Tc 99m DTPA aerosol and intravenous injection of 5.36 mC i of Tc 99m MAA, ventilation and perfusion images are acquired post injection in multiple projections . FINDINGS: Moderate bilateral matching defects in the upper lungs are seen. There is no evidence of mismatched d efects. IMPRESSION: Low scintigraphic evidence for acute pulmonary embolism. [email or web address] [facility], , 02/18/2025 12:03 PM
[2025-02-18 12:11] VITALS: BP 112/66; PULSE 55
[2025-02-18] MEDS ORDERED: HYDROcodone/APAP 10-325MG 1 EACH TAB PO PRN (12:23)
[2025-02-18] MEDS ORDERED: NITROGLYCERIN SL TABS 0.4 MG TAB SUBLINGUAL PRN (12:23)
--- NOTE | 2025-02-18 12:30 | P.HPIM ---
History of Present Illness 74-year-old male with a history of coronary disease came cardiomyopathy ICD came in with the complaints of chest pressure-like sensation which started yesterday relieved with 2 nitroglycerin denied any lightheadedness, diaphoresis or s hortness of breath associate with that. Patient pain is in the middle of the chest which resolved at this time moderate severity yesterday. Patient was started on IV IV heparin patient troponins are minimally elevated to 0.1 and flat at that level. EKG showed sinus bradycardia with T wave inversions in the inferolateral leads which is not significantly different from the previous EKG. Patient has an ejection fraction of 20% with apical hypokinesis on echocardiogram that was obtained on April 2024. Patient had a cardiac catheterization in 2017 and had stent to proximal LAD at that time. Patient has elevated creatinine of 2.4 baseline is around 1.5. Patient is on Entresto, other diuretics for congestive heart failure. VQ scan was ordered because of elevated D-dimer which showed low probably for pulmonary embolism REVIEW OF SYSTEMS: All other systems are negative except those mentioned in the HPI PHYSICAL EXAMINATION: GENERAL: The patient is alert and oriented x3, not in any acute distress. Well developed, well nourished. HEENT: Pupils are round and equally reacting to light. EOMI. No scleral icterus. No conjunctival pallor. Normocephalic, atraumatic. No pharyngeal erythema. No thyromegaly. CARDIOVASCULAR: S1 and S2 present. No murmurs, rubs, or gallops. PULMONARY: Chest is clear to auscultation, no wheezing or crackles. ABDOMEN: Soft, nontender, nondistended, normoactive bowel sounds. No palpable organomegaly. MUSCULOSKELETAL: No joint swelling or deformity. EXTREMITIES: No cyanosis, clubbing, or pedal edema. NEUROLOGICAL: Gross neurological examination did not reveal any focal deficits. SKIN: No rashes. Assessment and plan -Elevated troponins probably secondary to renal dysfunction without any primary myocardial infarction. - Chest pain: Ruled out acute coronary syndromes and ruled out pulmonary embolism at this time - Acute renal failure on chronic kidney disease stage IIIb. Because of the acute renal failure Entresto diuretics and losartan are being held at this time patient is actually receiving 50 cc of normal saline at this time - Congestive heart failure chronic systolic dysfunction ischemic cardiomyopathy EF of around 20% patient is presently not in any acute heart failure exacerbation at this time. Patient has an AICD - Hypertension - Hyperlipidemia - Coronary artery disease and carotid artery disease - History of abdominal aortic aneurysm with endovascular repair, peripheral vascular vascular disease with femorofemoral bypass DVT prophylaxis: Patient is presently on IV heparin Past Medical History Past Medical History: COPD, Diabetes Mellitus, Myocardial Infarction (ND) Additional Past Medical History / Comment(s): pt stated EF of 25% new life vest. AORTIC ANEUYRSYM. Last Myocardial Infarction Date:: 07/13/2017 History of Any Multi-Drug Resistant Organisms: None Reported Past Surgical History: Heart Catheterization With Stent Additional Past Surgical History / Comment(s): 1 stent placed approx [address] Norwood, 2 stents placed Jul 13 at [facility] ( D/C on 07-18) Past Anesthesia/Blood Transfusion Reactions: No Reported Reaction Date of Last Stent Placement:: 07-13-2017 Past Psychological History: No Psychological Hx Reported Smoking Status: Never smoker Past Alcohol Use History: None Reported Past Drug Use History: None Reported - Past Family History Father Family Medical History: Cancer Additional Family Medical History / Comment(s): SKIN CANCER Sister(s) Family Medical History: Cancer Additional Family Medical History / Comment(s): BREAST CANCER Medications and Allergies Home Medications Medication Instructions Recorded Confirmed Type Aspirin [Adult Low Dose Aspirin EC] 81 mg PO DAILY 07/19/17 02/18/25 History Spironolactone [Aldactone] 25 mg PO DAILY 07/19/17 02/18/25 History Nitroglycerin Sl Tabs [Nitrostat] 0.4 mg SUBLINGUAL Q5M PRN #100 tab 08/08/18 02/18/25 Rx carvediloL [Coreg] 3.125 mg PO BID 08/08/18 02/18/25 History Amoxic-Pot Clav 875-125Mg 1 tab PO BID 02/18/25 02/18/25 History [Augmentin 875-125] Atorvastatin [Lipitor] 40 mg PO HS 02/18/25 02/18/25 History Bumetanide [BUMEX] 0.5 mg PO MOWEFR 02/18/25 02/18/25 History Chlorhexidine Gluconate [Peridex] 30 ml PO TID 02/18/25 02/18/25 History HYDROcodone/APAP 10-325MG [[place] 1 tab PO Q8H PRN 02/18/25 02/18/25 History 10-325] Ibuprofen [Motrin] 800 mg PO Q8H PRN 02/18/25 02/18/25 History Sacubitril/Valsartan [Entresto 49 1 tab PO BID 02/18/25 02/18/25 History mg-51 mg Tablet] allopurinoL [Zyloprim] 100 mg PO DAILY 02/18/25 02/18/25 History Allergies Allergy/AdvReac Type Severity Reaction Status Date / Time Egg Derived Allergy Abdominal Verified 02/18/25 10:44 Pain Poultry Allergy Abdominal Verified 02/18/25 10:44 Pain NSAIDS (Non-Steroidal AdvReac KIDNEY Verified 02/18/25 10:44 Anti-Inflamma ISSUES Physical Exam Vitals: Vital Signs Temp Pulse Resp BP Pulse Ox 02/18/25 12:00 55 L 20 112/66 96 02/18/25 11:02 52 L 20 144/77 96 02/18/25 09:01 53 L 20 129/68 96 02/18/25 07:47 54 L 20 128/76 99 02/18/25 05:45 55 L 16 121/75 98 02/18/25 05:18 97.8 F 59 L 18 119/70 94 L Intake and Output 02/17/25 02/18/25 02/18/25 22:59 06:59 14:59 Other: Weight 61.235 kg Results CBC & Chem 7: 02/18/25 05:29 02/18/25 05:29 Labs: Abnormal Lab Results - Last 24 Hours (Table) 02/18/25 02/18/25 02/18/25 Range/Units 05:29 05:29 05:29 RBC 3.92 L (4.40-5.60) 10*6/uL Hgb 12.3 L (13.0-17.0) g/dL Hct 37.2 L (39.6-50.0) % MPV 9.3 L (9.5-12.2) fL Monocytes # 1.25 H (0.20-1.00) 10*3/uL Eosinophils # 1.17 H (0.04-0.35) 10*3/uL D-Dimer 4.20 H (<0.60) mg/L FEU Sodium 134 L (137-145) mmol/L BUN 28 H (9-20) mg/dL Creatinine 2.39 H (0.66-1.25) mg/dL Glucose 119 H (74-99) mg/dL Troponin I (0.000-0.034) ng/mL 02/18/25 02/18/25 Range/Units 05:29 07:50 RBC (4.40-5.60) 10*6/uL Hgb (13.0-17.0) g/dL Hct (39.6-50.0) % MPV (9.5-12.2) fL Monocytes # (0.20-1.00) 10*3/uL Eosinophils # (0.04-0.35) 10*3/uL D-Dimer (<0.60) mg/L FEU Sodium (137-145) mmol/L BUN (9-20) mg/dL Creatinine (0.66-1.25) mg/dL Glucose (74-99) mg/dL Troponin I 0.106 H* 0.110 H* (0.000-0.034) ng/mL
[2025-02-18] MEDS: AMOXIC-POT CLAV 875-125MG 1 EACH TAB PO SCH (12:34)
[2025-02-19] MEDS ORDERED: ASPIRIN 81 MG PO SCH (09:00)
[2025-02-19] MEDS ORDERED: ASPIRIN 325 MG TAB PO SCH (09:00)
--- NOTE | 2025-02-19 10:06 | CA ---
Transthoracic Echo Report Name: Moses Good Age: 74 Gender: M : 1950 Exam Date: 02/18/2025 13:52 Exam Location: [facility] Ht (in): 72 Wt (lb): 135 Ordering Physician: Jorge Mccarthy DO Attending/Referring Phys: [id number], Fabio [employer]er Julio Butterfield RDCS Procedure CPT: Indications: CP Cardiac Hx: Pacemaker with defibrillator Technical Quality: Good Contrast 1: Definity Total Dose (mL): 2 Contrast 2: Total Dose (mL): MEASUREMENTS (Male / Female) Normal Values 2D ECHO LV Diastolic Diameter PLAX 5.9 cm 4.2 - 5.9 / 3.9 - 5.3 cm LV Systolic Diameter PLAX 5.3 cm IVS Diastolic Thickness 0.7 cm 0.6 - 1.0 / 0.6 - 0.9 cm LVPW Diastolic Thickness 0.8 cm 0.6 - 1.0 / 0.6 - 0.9 cm LV Relative Wall Thickness 0.3 RV Internal Dim ED PLAX 2.7 cm LVOT Diameter 1.7 cm LA Systolic Diameter LX 3.0 cm 3.0 - 4.0 / 2.7 - 3.8 cm LV Diastolic Volume MOD BP 154.2 cm??? 67 - 155 / 56 - 104 cm??? LV Systolic Volume MOD BP 110.8 cm??? 22 - 58 / 19 - 49 cm??? LV Ejection Fraction MOD BP 28.2 % >= 55 % LV Cardiac Index MOD BP 1241.8 cm???/min???m??? LV Diastolic Volume MOD 4C 138.5 cm??? LV Systolic Volume MOD 4C 104.8 cm??? LV Ejection Fraction MOD 4C 24.3 % LV Cardiac Index MOD 4C 964.1 cm???/min???m??? LV Diastolic Length 4C 8.6 cm LV Systolic Length 4C 8.2 cm LV Diastolic Volume MOD 2C 166.3 cm??? LV Systolic Volume MOD 2C 115.5 cm??? LV Ejection Fraction MOD 2C 30.5 % LV Cardiac Index MOD 2C 1452.0 cm???/min???m??? LV Diastolic Length 2C 8.9 cm LV Systolic Length 2C 8.3 cm LA Volume 60.0 cm??? 18 - 58 / 22 - 52 cm??? LA Volume Index 34.3 cm???/m??? 16 - 28 cm???/m??? DOPPLER MV Area PHT 2.1 cm??? Mitral E Point Velocity 33.7 cm/s Mitral A Point Velocity 68.2 cm/s Mitral E to A Ratio 0.5 MV Deceleration Time 356.5 ms TR Peak Velocity 223.2 cm/s TR Peak Gradient 19.9 mmHg Right Atrial Pressure 5.0 mmHg Pulmonary Artery Systolic Pressu 24.9 mmHg Right Ventricular Systolic Press 24.9 mmHg FINDINGS Left Ventricle Left ventricular ejection fraction is estimated at 20-25%. Severely reduced global left ventricular systolic function. Severely increased left ventricular systolic volume. Left ventricular wall thickness normal. Right Ventricle Normal right ventricular size.right ventricular systolic pressure within normal limits. Right Atrium Normal right atrial size. Left Atrium Mildly increased left atrial volume. Mildly increased left atrial area. Mitral Valve Mitral valve thickened. No mitral stenosis. Mild mitral regurgitation. Aortic Valve Trileaflet aortic valve. No aortic stenosis. No aortic regurgitation. Tricuspid Valve Structurally normal tricuspid valve. No tricuspid stenosis. Trace tricuspid regurgitation. Pulmonic Valve Pulmonic valve not well visualized. No pulmonic stenosis. No pulmonic regurgitation. Pericardium No pericardial effusion. Aorta Aortic annulus normal. CONCLUSIONS Enlarged left ventricle with a global decrease in contractility estimate ejection fraction of 20 to 25%. Mild mitral and tricuspid regurgitation. No pericardial effusion. Previewed by: Dr. Jacob Alegre MD (Electronically Signed) Final Date: 19 Feb 2025 10:05
== END 2025-02-18 16:15 | disposition left against medical advice (07) ==
LOC: EC 05:17 → 6NMEDSUR 06:08
PROVIDERS: ADMIT Hospitalist; ATTEND Hospitalist
DX: R07.89 Other chest pain (principal); I25.10 Atherosclerotic heart disease of native coronary artery without angina pectoris; I25.5 Ischemic cardiomyopathy; E78.5 Hyperlipidemia, unspecified; E11.51 Type 2 diabetes mellitus with diabetic peripheral angiopathy without gangrene; N17.9 Acute kidney failure, unspecified; I13.0 Hypertensive heart and chronic kidney disease with heart failure and stage 1 through stage 4 chronic kidney disease, or unspecified chronic kidney disease; I50.22 Chronic systolic (congestive) heart failure; N18.32 Chronic kidney disease, stage 3b; E11.22 Type 2 diabetes mellitus with diabetic chronic kidney disease; J44.9 Chronic obstructive pulmonary disease, unspecified; I25.2 Old myocardial infarction; I65.29 Occlusion and stenosis of unspecified carotid artery; F17.200 Nicotine dependence, unspecified, uncomplicated; Z86.79 Personal history of other diseases of the circulatory system; Z95.5 Presence of coronary angioplasty implant and graft; Z95.810 Presence of automatic (implantable) cardiac defibrillator; Z79.82 Long term (current) use of aspirin; Z79.899 Other long term (current) drug therapy; Z88.6 Allergy status to analgesic agent; Z53.29 Procedure and treatment not carried out because of patient's decision for other reasons
CPT/HCPCS: 96365; 96366; 99291; 36415; 93005; 85379; 80053; 83690; 83735; 84484; 85025; 85610; 85730; 71046; 78582; G0378; C8929; A9540; A9567; J1644 ×2; 93306; 99285